=== PATIENT | male | born 1930 | race Caucasian/White ===

== ENCOUNTER 2016-11-28 13:54 | Emergency (ER) | payer OTHER ==
[~2016-11-28] VITALS: Ht 180.3 cm; Wt 99.0 kg
[~2016-11-28 13:54] MED LIST: B-12500T3 PO; CALC600T44 PO; GLUC1CAP14; METF500 PO; WARF2.5T40 PO; WARF5TAB PO; [UNRECOGNIZED DRUG - REMARK] PO; cholesterol pill PO
[2016-11-28 13:57] VITALS: PULSE 76; RESP 20; TEMP 97.7; O2SAT 75
[2016-11-28 14:28] VITALS: O2SAT 88
[2016-11-28] MEDS ORDERED: SODIUM CHLORIDE 0.9% FLUSH 5 ML FLUSH IVF PRN (14:30)
[2016-11-28] MEDS ORDERED: FUROSEMIDE 100 MG/10 ML VIAL IVP ONE (14:30)
--- NOTE | 2016-11-28 14:32 | PD ---
HPI Chief Complaint: Respiratory Symptoms Time Seen by Provider: 14:11 Travel History International Travel<30 days: No Contact w/Intl Traveler<30days: No Traveled to known affect area: No History of Present Illness HPI This patient complains of shortness of breath. He is chronically short of breath but worse the last 2 days than usual. He has generalized weakness. He has increased swelling in his legs. Denies productive cough or fever or chest pain. Has history of chronic A. fib and CHF and is dependent on oxygen 3 L around the clock. Also COPD. Symptoms moderately severe. No alleviating factors. PFSH Past Medical History Hx Anticoagulant Therapy: Yes (COUMADIN) Atrial Fibrillation: Yes Depression: Yes Cardiovascular Problems: Yes (OPEN HEART 17 YEARS AGO) High Cholesterol: Yes COPD: Yes Coronary Artery Disease: Yes Diabetes: Yes (TYPE 2) Patient Takes Glucophage: No Diminished Hearing: Yes Hypertension: Yes Respiratory: Yes Immunizations Current: Yes Past Surgical History Appendectomy: Yes Coronary Artery Bypass Graft: Yes (4 vessell) Other Surgery: Yes (ing hernia) Social History Alcohol Use: No Tobacco Use: No Substance Use: No Allergies-Medications (Allergen,Severity, Reaction): Coded Allergies: No Known Allergies (Unverified , 11/28/16) Reported Meds & Prescriptions Reported Meds & Active Scripts Active Reported Calcium + D3 (Calcium Carbonate-Cholecalciferol) 600-200 Mg-Unit Tab 1 Tab PO DAILY B-12 Tr (Cyanocobalamin) 1,000 Mcg Tab 1,000 Mcg PO DAILY Furosemide 40 Mg Tab 40 Mg PO DAILY Glucosamine (Glucosamine Sulfate) 500 Mg Cap 500 Mg PO BID Warfarin 5 Mg Tab 5 Mg PO MON,,MON,MON,SAT Warfarin 5 Mg Tab 2.5 Mg PO MON &FRI Metformin (Metformin HCl) 1,000 Mg Tab 1,000 Mg PO BIDPC With meals Colestipol (Colestipol HCl) 1 Gm Tab 1 Gm PO BID Review of Systems General / Constitutional: No: Fever Eyes: No: Visual changes HENT: No: Headaches Cardiovascular: Positive: Edema, No: Chest Pain or Discomfort Respiratory: Positive: Shortness of Breath Gastrointestinal: No: Abdominal Pain Genitourinary: No: Dysuria Musculoskeletal: Positive: Weakness, Edema, No: Pain Skin: No Rash Neurologic: Positive: Weakness Psychiatric: No: Depression Endocrine: No: Polydipsia Hematologic/Lymphatic: No: Easy Bruising Physical Exam Narrative GENERAL: Well-nourished, well-developed patient who is short of breath. Hard of hearing SKIN: Warm and dry. HEAD: Atraumatic. Normocephalic. EYES: Pupils equal and round. No scleral icterus. No injection or drainage. ENT: No nasal bleeding or discharge. Mucous membranes pink and moist. NECK: Trachea midline. No JVD. CARDIOVASCULAR: Regular rate and rhythm. No murmur appreciated. RESPIRATORY: Positive accessory muscle use. He has Bilateral basilar crackles. Breath sounds equal bilaterally. GASTROINTESTINAL: Abdomen soft, non-tender, nondistended. Hepatic and splenic margins not palpable. MUSCULOSKELETAL: No obvious deformities. No clubbing. No cyanosis. Symmetric edema the feet ankles and lower legs NEUROLOGICAL: Awake and alert. No obvious cranial nerve deficits. Motor grossly within normal limits. Normal speech. PSYCHIATRIC: Appropriate mood and affect; insight and judgment normal. Data Data Last Documented VS Vital Signs Date Time Temp Pulse Resp B/P Pulse Ox O2 Delivery O2 Flow Rate FiO2 11/28/16 15:56 60 18 121/64 94 Nasal Cannula 3.5 11/28/16 13:57 97.7 Orders Complete Blood Count With Diff (11/28/16 14:18) Basic Metabolic Panel (Bmp) (11/28/16 14:18) B-Type Natriuretic Peptide (11/28/16 14:18) Prothrombin Time / Inr (Pt) (11/28/16 14:18) Urinalysis - C+S If Indicated (11/28/16 14:18) Iv Access Insert/Monitor (11/28/16 14:18) Ecg Monitoring (11/28/16 14:18) Oximetry (11/28/16 14:18) Oxygen Administration (11/28/16 14:18) Chest, Single Ap (11/28/16 14:18) Sodium Chloride 0.9% Flush (Ns Flush) (11/28/16 14:30) Furosemide Inj (Lasix Inj) (11/28/16 14:30) Electrocardiogram (11/28/16 14:09) Arterial Blood Gas (Abg) (11/28/16 ) Labs Laboratory Tests Test 11/28/16 11/28/16 14:30 15:41 White Blood Count 6.2 TH/MM3 Red Blood Count 3.29 MIL/MM3 Hemoglobin 10.7 GM/DL Hematocrit 33.3 % Mean Corpuscular Volume 101.2 FL Mean Corpuscular Hemoglobin 32.5 PG Mean Corpuscular Hemoglobin 32.1 % Concent Red Cell Distribution Width 13.3 % Platelet Count 232 TH/MM3 Mean Platelet Volume 8.1 FL Neutrophils (%) (Auto) 82.8 % Lymphocytes (%) (Auto) 5.2 % Monocytes (%) (Auto) 8.8 % Eosinophils (%) (Auto) 0.3 % Basophils (%) (Auto) 2.9 % Neutrophils # (Auto) 5.2 TH/MM3 Lymphocytes # (Auto) 0.3 TH/MM3 Monocytes # (Auto) 0.5 TH/MM3 Eosinophils # (Auto) 0.0 TH/MM3 Basophils # (Auto) 0.2 TH/MM3 CBC Comment DIFF FINAL Differential Comment Prothrombin Time GREATER THAN 180.0 SEC Prothromb Time International 15.9 RATIO Ratio Sodium Level 140 MEQ/L Potassium Level 4.9 MEQ/L Chloride Level 95 MEQ/L Carbon Dioxide Level 42.6 MEQ/L Anion Gap 2 MEQ/L Blood Urea Nitrogen 43 MG/DL Creatinine 1.10 MG/DL Estimat Glomerular Filtration 63 ML/MIN Rate Random Glucose 211 MG/DL Calcium Level 9.2 MG/DL B-Type Natriuretic Peptide 708 PG/ML Urine Color YELLOW Urine Turbidity CLEAR Urine pH 6.0 Urine Specific [place] 1.012 Urine Protein TRACE mg/dL Urine Glucose (UA) NEG mg/dL Urine Ketones NEG mg/dL Urine Occult Blood NEG Urine Nitrite NEG Urine Bilirubin NEG Urine Leukocyte Esterase NEG Urine WBC 0-2 /hpf Urine Squamous Epithelial 0-5 /hpf Cells Microscopic Urinalysis Comment CULT NOT INDICATED MDM Medical Decision Making Medical Screen Exam Complete: Yes Emergency Medical Condition: Yes Medical Record Reviewed: Yes Differential Diagnosis CHF, pneumonia, bronchitis, COPD Narrative Course I have reviewed the patient's electronic medical record. I reviewed his most recent ER evaluation. He has a lot of chronic unfixable problems that we manage as best as we can. He also has history of asbestosis. IV placed CBC shows minor anemia Metabolic profile shows some elevation of BUN BNP is elevated in the 700s I reviewed his chest x-ray which shows cardiomegaly and sternal wires and some asbestosis findings. May have a hint of pulmonary edema in there also I reviewed his EKG which shows slow A. fib which is chronic Extended cardiac monitoring shows slow A. fib I gave him 60 mg iV Lasix Patient is diuresing On reevaluation he feels improved On his usual chronic 3 L cannula his saturation is 95-96% His ex- lives with him and helps take care of him and usually hands out his medication to him. However the last few days this patient was doing his own medications and has been noncompliant with diuretic. This would explain his increased edema He will double his diuretic for the next 3 days then return to normal levels They will be a balancing act between fluid removal and renal function over the long-term They will follow up with [place] primary physician Roxane man will take him home He is able to stand up and use the commode here in the department We had a lengthy discussion regarding placement. At some point in the near future he should be considered for [facility] placement. His ex will bring [facility] with [facility]. He looks clinically improved I don't think he requires urgent hospitalization for diuresis. He will return should he worsen Of note is INR on Coumadin is 15.9 and that should be held for several days until the [facility] can reass[facility] it He does not have any active bleeding. I gave him a dose of vitamin K 10 mg subcutaneous Diagnosis Primary Impression: Congestive heart failure Qualified Code: I50.23 - Acute on chronic systolic congestive heart failure Additional Impressions: Asbestosis Supratherapeutic INR Additional Instructions: Double diuretic for 3 days then return to normal dosing Stop Coumadin until [facility] reassesses the level Med/Other Pt SpecificInfo: Other Disposition: 01 DISCHARGE HOME Condition: Stable Mark Kim MD Nov 28, 2016 14:31
[2016-11-28] MEDS ORDERED: METF1000 PO (14:41)
[2016-11-28] MEDS ORDERED: COLE1TAB2 PO (14:41)
[2016-11-28] MEDS ORDERED: [UNRECOGNIZED DRUG - CODE] PO (14:41)
[2016-11-28] MEDS ORDERED: GLUC500C5 PO (14:41)
[2016-11-28] MEDS ORDERED: CALC600T10 PO (14:41)
[2016-11-28] MEDS ORDERED: FURO40TA PO (14:41)
[2016-11-28] MEDS ORDERED: WARF-23 PO ×2 (14:41)
[2016-11-28 14:44] LABS: POTASSIUM 4.9 MEQ/L (3.5-5.1)
[2016-11-28 14:47] LABS: BICARBONATE 42.6 MEQ/L (21.0-32.0)
[2016-11-28 14:51] LABS: AUTOMATED NEUTROPHIL # 5.2 TH/MM3 (1.8-7.7); BASOPHIL # 0.2 TH/MM3 (0-0.2); BASOPHIL % 2.9 % (0.0-2.0); EOSINOPHIL % 0.3 % (0.0-4.0); HEMATOCRIT 33.3 % (39.0-51.0); LYMPH % 5.2 % (9.0-44.0); LYMPHOCYTE # 0.3 TH/MM3 (1.0-4.8); MEAN CELL VOLUME 101.2 FL (80.0-100.0); MEAN CORPUSCULAR HEMOGLOBIN 32.5 PG (27.0-34.0); MEAN CORPUSCULAR HGB CONC 32.1 % (32.0-36.0); MONO % 8.8 % (0.0-8.0); NEUT % 82.8 % (16.0-70.0); PLATELET COUNT 232 TH/MM3 (150-450); RED BLOOD COUNT 3.29 MIL/MM3 (4.50-5.90); RED CELL DISTRIBUTION WIDTH 13.3 % (11.6-17.2); WHITE BLOOD COUNT 6.2 TH/MM3 (4.0-11.0)
[2016-11-28 14:54] LABS: HEMO FLAGS DIFF FINAL
--- NOTE | 2016-11-28 15:11 | RADHPO ---
EXAM DATE/TIME: 11/28/2016 14:44 [facility] COMPARISON: No previous studies available for comparison. INDICATIONS : Short of breath MEDICAL HISTORY : Hypertension. Hypercholesterolemia. SURGICAL HISTORY : CABG. ENCOUNTER: Initial ACUITY: 2 days PAIN SCORE: 2/10 LOCATION: Bilateral chest FINDINGS: The cardiac silhouette is normal in transverse diameter. Median sternotomy wires are present. There i s severe chronic fibrotic changes bilaterally with pleural thickening or fluid bilaterally. CT scan i s recommended for further evaluation if clinically indicated. There is calcification along the right hemidiaphragm. There is also calcification in the left hemithorax. CONCLUSION: Cardiomegaly with findings of asbestosis. CT scan is recommended for further evaluation if clinically indicated. Taye Brarett MD on November 28, 2016 at 15:01 Board Certified Radiologist. This report was verified electronically.
[2016-11-28 15:24] LABS: INTERNATIONAL NORMALIZED RATIO 15.9 RATIO; PROTHROMBIN TIME - PATIENT GREATER THAN 180.0 SEC (9.8-11.6)
[2016-11-28 15:51] LABS: BLOOD, URINE NEG (NEG); GLUCOSE,URINE NEG (NEG); KETONE, URINE NEG (NEG); NITRITE,URINE NEG (NEG)
[2016-11-28 15:56] VITALS: BP 121/64; PULSE 60; RESP 18; O2SAT 94
[2016-11-28 15:57] LABS: URINE COLOR YELLOW (YELLW/STRAW)
[2016-11-28 15:58] LABS: COMMENT (UR) CULT NOT INDICATED; CULTURE IF INDICATED CULT NOT INDICATED; SQUAMOUS EPITHELIAL CELL URINE 0-5 /hpf (0-5); WBC, URINE 0-2 /hpf (0-5)
[2016-11-28] MEDS ORDERED: PHYTONADIONE 10 MG/ML VIAL SQ ONE ×2 (16:45)
[2016-11-28] MEDS ORDERED: PHYTONADIONE INJ 1 MG/0.5 ML AMP SQ ONE (16:45)
--- NOTE | 2016-11-29 15:40 | EKG ---
Date Performed: 11/28/2016 Time Performed: 14:09:00 PTAGE: 86 years EKG: Atrial fibrillation with slow ventricular response Extensive T wave changes are nonspecific Low QRS voltages in limb leads Abnormal ECG PREVIOUS TRACING : 09/11/2015 17.08 Compared to previous tracing, nonspecific T wave changes ar e now evident. DOCTOR: Juan Dorado Interpretating Date/Time 11/29/2016 15:40:08
== END 2016-11-28 16:46 | disposition home or self-care (01) ==
LOC: PHED 13:54
DX: I50.23 Acute on chronic systolic (congestive) heart failure (principal); J61 Pneumoconiosis due to asbestos and other mineral fibers; R79.1 Abnormal coagulation profile
CPT/HCPCS: 71010; 80048; 81001; 83880; 85025; 85610; 93005; 96372; 96374; 99285; J1940; J3430

== ENCOUNTER 2016-11-30 12:07 | Inpatient (IN) | payer MEDICARE, OTHER ==
[~2016-11-30] VITALS: Ht 172.7 cm; Wt 80.0 kg
[2016-11-30] VITALS (9 sets, daily range): BP systolic 110–160; BP diastolic 53–73; PULSE 50–78; RESP 12–22; TEMP 98.1–98.6; O2SAT 83–97
[~2016-11-30 12:07] MED LIST changes: -B-12500T3 PO; +CALC600T10 PO; -CALC600T44 PO; +COLE1TAB2 PO; +FURO40TA PO; -GLUC1CAP14; +GLUC500C5 PO; +METF1000 PO; -METF500 PO; +WARF-23 PO; -WARF2.5T40 PO; -WARF5TAB PO; +[UNRECOGNIZED DRUG - CODE] PO; -[UNRECOGNIZED DRUG - REMARK] PO; -cholesterol pill PO
--- NOTE | 2016-11-30 13:18 | PD ---
HPI Chief Complaint: Medical Clearance Time Seen by Provider: 13:10 Travel History International Travel<30 days: No Contact w/Intl Traveler<30days: No Traveled to known affect area: No History of Present Illness HPI Patient is an 86-year-old male brought in for evaluation of an elevated INR. Patient's INR was reported to be around 15 on November 28. states they went to the [facility] emergency department 2 days ago and was advised to stop taking the Coumadin. Patient's also states that she went away for a week and when she came back he had a significant change in that he could not walk well and felt dizzy. She states prior to her going away he was able to ambulate but touching the pickering. Additionally states that he fell out of bed last night, she is uncertain whether not he lost consciousness or hit his head. When she found him he had crawled to the other side of the room. There was a table that was overturned, the lamp was turned over. called EMS to help get patient off of the floor. When EMS arrived on the scene and checked patient's oxygen saturation they stated it was low and that his home O2 wasn't providing enough oxygen. She states it was less than 1 L, he is supposed to be on 3 L. Patient does report that he has felt dizzy but denies any chest pain, shortness of breath, headache, fever, chills. Patient is a poor historian. PFSH Past Medical History Hx Anticoagulant Therapy: Yes (COUMADIN) Atrial Fibrillation: Yes Depression: Yes Cardiovascular Problems: Yes (BYPASS) High Cholesterol: Yes COPD: Yes Coronary Artery Disease: Yes Diabetes: Yes Diminished Hearing: Yes Hypertension: Yes Respiratory: Yes (COPD/ on O2 AT ALL TIMES AT 3 LNC) Immunizations Current: Yes Past Surgical History Appendectomy: Yes Coronary Artery Bypass Graft: Yes (4 vessell) Other Surgery: Yes (ing hernia) Social History Alcohol Use: No Tobacco Use: No Substance Use: No Allergies-Medications (Allergen,Severity, Reaction): Coded Allergies: No Known Allergies (Unverified , 11/30/16) Reported Meds & Prescriptions Reported Meds & Active Scripts Active Reported Vitamin B-12 (Cyanocobalamin) 1,000 Mcg Tab 1,000 Mcg PO DAILY Calcium + D3 (Calcium Carbonate-Cholecalciferol) 600-200 Mg-Unit Tab 1 Tab PO DAILY Furosemide 40 Mg Tab 40 Mg PO DAILY Glucosamine (Glucosamine Sulfate) 500 Mg Cap 500 Mg PO BID Warfarin 5 Mg Tab 5 Mg PO SUTUWETHSA Take 1 tablet (5mg) on Monday,Monday,Monday, and Monday Warfarin 5 Mg Tab 2.5 Mg PO MOFR Take 1/2 tablet (2.5mg) on Monday and Monday Metformin (Metformin HCl) 1,000 Mg Tab 1,000 Mg PO BIDPC With meals Colestipol (Colestipol HCl) 1 Gm Tab 1 Gm PO BID Review of Systems ROS Limitations: Poor Historian Except as stated in HPI: all other systems reviewed are Neg HENT: No: Headaches Cardiovascular: No: Chest Pain or Discomfort Respiratory: No: Shortness of Breath Gastrointestinal: No: Nausea, Abdominal Pain Neurologic: Positive: Dizziness, Coordination Problem, Headache, Other (gait disturbance) Physical Exam Narrative GENERAL: Well-developed, well-nourished, elderly male. SKIN: Warm and dry. HEAD: Atraumatic. Normocephalic. EYES: Pupils equal and round. No scleral icterus. No injection or drainage. ENT: No nasal bleeding or discharge. Mucous membranes pink and moist. NECK: Trachea midline. No JVD. CARDIOVASCULAR: Regular rate and rhythm. 3/6 systolic murmur appreciated. RESPIRATORY: No accessory muscle use. Diminished in bases, no wheezing, rhonchi , or rales noted. GASTROINTESTINAL: Abdomen soft, non-tender, nondistended. Hepatic and splenic margins not palpable. MUSCULOSKELETAL: No obvious deformities. No clubbing. No cyanosis. No edema. NEUROLOGICAL: Awake and alert. No obvious cranial nerve deficits. Motor grossly within normal limits. Normal speech. Hard of hearing. PSYCHIATRIC: Appropriate mood and affect; insight and judgment normal. Data Data Last Documented VS Vital Signs Date Time Temp Pulse Resp B/P Pulse Ox O2 Delivery O2 Flow Rate FiO2 11/30/16 17:00 52 18 110/53 91 Nasal Cannula 2 11/30/16 12:09 98.1 Orders Prothrombin Time / Inr (Pt) (11/30/16 12:53) Act Partial Throm Time (Ptt) (11/30/16 12:53) Complete Blood Count With Diff (11/30/16 12:53) Comprehensive Metabolic Panel (11/30/16 12:53) Ct Brain W/O Iv Contrast(Rout) (11/30/16 ) Urinalysis - C+S If Indicated (11/30/16 13:08) Ckmb (Isoenzyme) Profile (11/30/16 13:10) Troponin I (11/30/16 13:10) B-Type Natriuretic Peptide (11/30/16 15:09) Iv Access Insert/Monitor (11/30/16 15:09) Ecg Monitoring (11/30/16 15:09) Oximetry (11/30/16 15:09) Oxygen Administration (11/30/16 15:09) Chest, Single Ap (11/30/16 15:09) Albuterol-Ipratropium Neb (Duoneb Neb) (11/30/16 15:15) Arterial Blood Gas (Abg) (11/30/16 ) Admit Order (Ed Use Only) (11/30/16 17:12) Consult Pt Eval & Treat (11/30/16 17:13) Labs Laboratory Tests Test 11/30/16 11/30/16 11/30/16 13:14 15:34 15:35 White Blood Count 7.2 TH/MM3 Red Blood Count 2.93 MIL/MM3 Hemoglobin 10.2 GM/DL Hematocrit 29.8 % Mean Corpuscular Volume 101.8 FL Mean Corpuscular Hemoglobin 34.9 PG Mean Corpuscular Hemoglobin 34.2 % Concent Red Cell Distribution Width 14.0 % Platelet Count 190 TH/MM3 Mean Platelet Volume 8.4 FL Neutrophils (%) (Auto) 88.4 % Lymphocytes (%) (Auto) 2.8 % Monocytes (%) (Auto) 7.8 % Eosinophils (%) (Auto) 0.1 % Basophils (%) (Auto) 0.9 % Neutrophils # (Auto) 6.3 TH/MM3 Lymphocytes # (Auto) 0.2 TH/MM3 Monocytes # (Auto) 0.6 TH/MM3 Eosinophils # (Auto) 0.0 TH/MM3 Basophils # (Auto) 0.1 TH/MM3 CBC Comment DIFF FINAL Differential Comment Prothrombin Time 22.8 SEC Prothromb Time International 2.0 RATIO Ratio Activated Partial 33.8 SEC Thromboplast Time Sodium Level 142 MEQ/L Potassium Level 4.2 MEQ/L Chloride Level 96 MEQ/L Carbon Dioxide Level 41.1 MEQ/L Anion Gap 5 MEQ/L Blood Urea Nitrogen 41 MG/DL Creatinine 1.29 MG/DL Estimat Glomerular Filtration 53 ML/MIN Rate Random Glucose 259 MG/DL Calcium Level 9.0 MG/DL Total Bilirubin 0.9 MG/DL Aspartate Amino Transf 176 U/L (AST/SGOT) Alanine Aminotransferase 138 U/L (ALT/SGPT) Alkaline Phosphatase 125 U/L Total Creatine Kinase 89 U/L Troponin I 0.18 NG/ML Total Protein 7.0 GM/DL Albumin 3.5 GM/DL Blood Gas Puncture Site RT RADIAL Blood Gas Patient Temperature 98.6 Blood Gas HCO3 44 mmol/L Blood Gas Base Excess 17.5 mmol/L Blood Gas Oxygen Saturation 93 % Arterial Blood pH 7.39 Arterial Blood Partial 74 mmHg Pressure CO2 Arterial Blood Partial 80 mmHG Pressure O2 Arterial Blood Oxygen Content 14.8 Vol % Arterial Blood 1.9 % Carboxyhemoglobin Arterial Blood Methemoglobin 0.2 % Blood Gas Hemoglobin 11.3 G/DL Oxygen Delivery Device NASAL CANNULA Blood Gas Liter Flow 4 L/M B-Type Natriuretic Peptide 706 PG/ML MDM Medical Decision Making Medical Screen Exam Complete: Yes Emergency Medical Condition: Yes Interpretation(s) Vital Signs Date Time Temp Pulse Resp B/P Pulse Ox O2 Delivery O2 Flow Rate FiO2 11/30/16 12:09 98.1 78 20 160/67 92 Room Air Differential Diagnosis CVA versus coagulopathy versus hypoxia versus electrolyte abnormality versus cardiac arrhythmia Narrative Course Patient is in a 86-year-old male presenting to the emergency department for evaluation of elevated INR. Additionally patient had an unwitnessed fall earlier this morning. Patient is also felt dizzy and lightheaded and hasn't been able to ambulate as he normally would, and is uncertain how long this has been going on however patient's was out of town for a week and he was normal before she left. Labs ordered and pending. CT scan of the brain ordered to rule out acute bleed due to elevated INR as well as uncertainty regarding head injury. Workup initiated in triage, care of patient will be transferred to provide her with a medical bed is available. Cecilia Harrell Nov 30, 2016 13:18
[2016-11-30 13:31] LABS: AUTOMATED NEUTROPHIL # 6.3 TH/MM3 (1.8-7.7); BASOPHIL # 0.1 TH/MM3 (0-0.2); BASOPHIL % 0.9 % (0.0-2.0); EOSINOPHIL % 0.1 % (0.0-4.0); HEMATOCRIT 29.8 % (39.0-51.0); HEMO FLAGS DIFF FINAL; LYMPH % 2.8 % (9.0-44.0); LYMPHOCYTE # 0.2 TH/MM3 (1.0-4.8); MEAN CELL VOLUME 101.8 FL (80.0-100.0); MEAN CORPUSCULAR HEMOGLOBIN 34.9 PG (27.0-34.0); MEAN CORPUSCULAR HGB CONC 34.2 % (32.0-36.0); MONO % 7.8 % (0.0-8.0); NEUT % 88.4 % (16.0-70.0); PLATELET COUNT 190 TH/MM3 (150-450); RED BLOOD COUNT 2.93 MIL/MM3 (4.50-5.90); WHITE BLOOD COUNT 7.2 TH/MM3 (4.0-11.0)
[2016-11-30 13:44] LABS: APTT (PATIENT) 33.8 SEC (24.3-30.1); PROTHROMBIN TIME - PATIENT 22.8 SEC (9.8-11.6)
[2016-11-30 13:50] LABS: ALT (GPT) 138 U/L (12-78); ANION GAP 5 MEQ/L (5-15); AST (GOT) 176 U/L (15-37); BICARBONATE 41.1 MEQ/L (21.0-32.0); BLOOD UREA NITROGEN 41 MG/DL (7-18); CHLORIDE 96 MEQ/L (98-107); GLOMERULAR FILTRATION RATE 53 ML/MIN (>89); POTASSIUM 4.2 MEQ/L (3.5-5.1); SODIUM (NA) 142 MEQ/L (136-145)
[2016-11-30 13:52] LABS: ALKALINE PHOSPHATASE 125 U/L (45-117); TOTAL BILIRUBIN ADULT 0.9 MG/DL (0.2-1.0)
--- NOTE | 2016-11-30 14:40 | RADRPT ---
EXAM DATE/TIME: 11/30/2016 13:40 [facility] COMPARISON: No previous studies available for comparison. INDICATIONS : Weakness, altered mental status. RADIATION DOSE: 40.13 CTDIvol (mGy) MEDICAL HISTORY : Cardiovascular disease. Hypertension. Diabetes mellitus type 2. SURGICAL HISTORY : Appendectomy. ENCOUNTER: Initial ACUITY: 1 day PAIN SCALE: 0/10 LOCATION: cranial TECHNIQUE: Multiple contiguous axial images were obtained of the head. Using automated exposure control and adj ustment of the mA and/or kV according to patient size, radiation dose was kept as low as reasonably a chievable to obtain optimal diagnostic quality images. FINDINGS: CEREBRUM: The ventricles are normal for age. No evidence of midline shift, mass lesion, hemorrhage or acute in farction. No extra-axial fluid collections are seen. POSTERIOR FOSSA: The cerebellum and brainstem are intact. The 4th ventricle is midline. The cerebellopontine angle i s unremarkable. EXTRACRANIAL: The visualized portion of the orbits is intact. SKULL: The calvaria is intact. No evidence of skull fracture. CONCLUSION: Negative noncontrast head CT. Kenroy Tovar MD on November 30, 2016 at 14:38 Board Certified Radiologist. This report was verified electronically.
--- NOTE | 2016-11-30 15:13 | PD ---
Physical Exam Narrative 86-year-old male with altered mental status and generalized malaise and weakness. Patient was seen by my senior it assistant and signed out to me. Data Data Last Documented VS Vital Signs Date Time Temp Pulse Resp B/P Pulse Ox O2 Delivery O2 Flow Rate FiO2 11/30/16 15:10 83 Nasal Cannula 2 11/30/16 15:03 69 22 128/68 11/30/16 12:09 98.1 Orders Prothrombin Time / Inr (Pt) (11/30/16 12:53) Act Partial Throm Time (Ptt) (11/30/16 12:53) Complete Blood Count With Diff (11/30/16 12:53) Comprehensive Metabolic Panel (11/30/16 12:53) Ct Brain W/O Iv Contrast(Rout) (11/30/16 ) Urinalysis - C+S If Indicated (11/30/16 13:08) Ckmb (Isoenzyme) Profile (11/30/16 13:10) Troponin I (11/30/16 13:10) B-Type Natriuretic Peptide (11/30/16 15:09) Iv Access Insert/Monitor (11/30/16 15:09) Ecg Monitoring (11/30/16 15:09) Oximetry (11/30/16 15:09) Oxygen Administration (11/30/16 15:09) Chest, Single Ap (11/30/16 15:09) Albuterol-Ipratropium Neb (Duoneb Neb) (11/30/16 15:15) Arterial Blood Gas (Abg) (11/30/16 ) Admit Order (Ed Use Only) (11/30/16 17:12) Consult Pt Eval & Treat (11/30/16 17:13) Labs Laboratory Tests Test 11/30/16 11/30/16 13:14 15:34 White Blood Count 7.2 TH/MM3 Red Blood Count 2.93 MIL/MM3 Hemoglobin 10.2 GM/DL Hematocrit 29.8 % Mean Corpuscular Volume 101.8 FL Mean Corpuscular Hemoglobin 34.9 PG Mean Corpuscular Hemoglobin 34.2 % Concent Red Cell Distribution Width 14.0 % Platelet Count 190 TH/MM3 Mean Platelet Volume 8.4 FL Neutrophils (%) (Auto) 88.4 % Lymphocytes (%) (Auto) 2.8 % Monocytes (%) (Auto) 7.8 % Eosinophils (%) (Auto) 0.1 % Basophils (%) (Auto) 0.9 % Neutrophils # (Auto) 6.3 TH/MM3 Lymphocytes # (Auto) 0.2 TH/MM3 Monocytes # (Auto) 0.6 TH/MM3 Eosinophils # (Auto) 0.0 TH/MM3 Basophils # (Auto) 0.1 TH/MM3 CBC Comment DIFF FINAL Differential Comment Prothrombin Time 22.8 SEC Prothromb Time International 2.0 RATIO Ratio Activated Partial 33.8 SEC Thromboplast Time Sodium Level 142 MEQ/L Potassium Level 4.2 MEQ/L Chloride Level 96 MEQ/L Carbon Dioxide Level 41.1 MEQ/L Anion Gap 5 MEQ/L Blood Urea Nitrogen 41 MG/DL Creatinine 1.29 MG/DL Estimat Glomerular Filtration 53 ML/MIN Rate Random Glucose 259 MG/DL Calcium Level 9.0 MG/DL Total Bilirubin 0.9 MG/DL Aspartate Amino Transf 176 U/L (AST/SGOT) Alanine Aminotransferase 138 U/L (ALT/SGPT) Alkaline Phosphatase 125 U/L Total Creatine Kinase 89 U/L Troponin I 0.18 NG/ML Total Protein 7.0 GM/DL Albumin 3.5 GM/DL Blood Gas Puncture Site RT RADIAL Blood Gas Patient Temperature 98.6 Blood Gas HCO3 44 mmol/L Blood Gas Base Excess 17.5 mmol/L Blood Gas Oxygen Saturation 93 % Arterial Blood pH 7.39 Arterial Blood Partial 74 mmHg Pressure CO2 Arterial Blood Partial 80 mmHG Pressure O2 Arterial Blood Oxygen Content 14.8 Vol % Arterial Blood 1.9 % Carboxyhemoglobin Arterial Blood Methemoglobin 0.2 % Blood Gas Hemoglobin 11.3 G/DL Oxygen Delivery Device NASAL CANNULA Blood Gas Liter Flow 4 L/M [facility] Supervised Visit with JUSTIN: Yes Interpretation(s) Last Impressions Head CT 11/30/16 0000 Signed Impressions: Service Date/Time: Wednesday, November 30, 2016 13:40 - CONCLUSION: Negative noncontrast head CT. Kenroy Tovar MD 15 12 PM. CBC WBC 7.2. Hemoglobin 10.2 hematocrit 29.8. MCV 101.8. 88 neutrophil. Bicarbonate 41.1. BUN 41. Creatinine 1.29. GFR 53. Glucose 259. AST 176. ALT 138. Alkaline phosphatase 125. 1657 PM. Chest x-ray shows no acute changes. Troponin 0.18. Narrative Course CBC is stable. BUN/creatinine in stable. Bicarbonate chronically elevated. Metabolic alkalosis compensation for respiratory acidosis. Patient has elevated LFTs without previous lab for comparison. Troponin elevated 0.18. Patient however has renal insufficiency and elevated BNP. Serial EKG and troponin pending. Diagnosis Primary Impression: Weakness Additional Impressions: Renal insufficiency COPD (chronic obstructive pulmonary disease) Qualified Code: J44.9 - Chronic obstructive pulmonary disease, unspecified COPD type CHF (congestive heart failure) Qualified Code: I50.9 - Chronic congestive heart failure, unspecified congestive heart failure type Elevated troponin Addison Gutierrez MD Nov 30, 2016 15:13
[2016-11-30] MEDS ORDERED: RESP: ALBUTEROL 2.5 MG/IPRATROPIUM 0.5 MG NEB (SCH) INH ONE (15:15)
[2016-11-30 15:39] LABS: BLOOD GAS BASE EXCESS 17.5 mmol/L (-2-2); BLOOD GAS CARBOXYHEMOGLOBIN 1.9 % (0-4); BLOOD GAS HCO3 44 mmol/L (22-26); BLOOD GAS METHEMOGLOBIN 0.2 % (0-2); BLOOD GAS O2 HGB SATURATION 93 % (90-100); BLOOD GAS OXYGEN CONTENT 14.8 Vol % (12.0-20.0); BLOOD GAS PCO2 74 mmHg (38-42); BLOOD GAS PO2 80 mmHG (61-120); BLOOD GAS TOTAL HGB 11.3 G/DL (12.0-16.0); TEMP CORR TO 98.6
[2016-11-30 15:46] LABS: CRITICAL VALUE YES; OXYGEN DEVICE NASAL CANNULA
[2016-11-30 15:47] LABS: DRAW SITE RT RADIAL; LITER FLOW 4 L/M; NUMBER OF ARTERIAL PUNCTURES 1; STAT YES; ULNAR PULSE PRESENT
[2016-11-30] MEDS ORDERED: VITA10002 PO (15:49)
--- NOTE | 2016-11-30 16:18 | RADRPT ---
EXAM DATE/TIME: 11/30/2016 15:33 [facility] COMPARISON: CHEST SINGLE AP, November 28, 2016, 14:44. INDICATIONS : Short of breath. MEDICAL HISTORY : Chronic obstructive pulmonary disease. SURGICAL HISTORY : CABG. ENCOUNTER: Initial ACUITY: 1 day PAIN SCORE: 0/10 LOCATION: Bilateral chest FINDINGS: Patchy consolidation and laterally loculated pleural effusions again seen on both sides. Findings are similar to perhaps slightly improved in the interim. No pneumothorax seen. Mild cardiomegaly is stable. Patient has had previous median sternotomy. CONCLUSION: No significant change to slightly improved. Please see above. Kenroy Tovar MD on November 30, 2016 at 16:16 Board Certified Radiologist. This report was verified electronically.
[2016-11-30] MEDS ORDERED: RESP: ALBUTEROL 2.5 MG/IPRATROPIUM 0.5 MG NEB (PRN) NEB (22:00)
[2016-11-30] MEDS ORDERED: COLESTIPOL 1 GM PO SCH (22:00)
[2016-11-30] MEDS ORDERED: GLUCAGON 1 MG/ML VIAL OTHER PRN (22:15)
[2016-11-30] MEDS ORDERED: DEXTROSE 50% IN WATER 50 ML VIAL(D50) IV PUSH PRN (22:15)
--- NOTE | 2016-11-30 23:54 | HHI.HP ---
[facility] Service [facility] Primary Care Physician [facility] Admission Diagnosis weakness. Renal insufficiency. COPD. CHF. Diagnoses: (1) Weakness (2) Lightheadedness (3) Dizziness (4) Atrial fibrillation (5) COPD (chronic obstructive pulmonary disease) (6) CHF (congestive heart failure) (7) Transaminitis (8) Renal insufficiency (9) Type 2 diabetes mellitus (10) Anemia Chief Complaint: Weakness in legs and inability to walk Travel History International Travel<30 Days: No Contact w/Intl Traveler <30 Da: No Traveled to Known Affected Are: No History of Present Illness Mr. Israel is a forgetful 86-year-old male with a past medical history of coronary artery disease that is supposed coronary artery bypass graft 4 vessels , atrial fibrillation on Coumadin, hyperlipidemia, hypertension, COPD-oxygen dependent (3 L nasal cannula), and type 2 diabetes mellitus who presented to the emergency room 11/30/2016 for recent fall, weakness, dizziness, and lightheadedness. The patient presented to the emergency room 11/28/2016 and an INR done at that time was 15.9 with PTT of greater than 180.0 (treated with Vitamin K 10 mg). Currently, PT is 22.8, INR 2.0, and aPTT 33.8. The patient is seen in his hospital room. He is forgetful during the interview and at times loses track of the conversation. He states he came to the emergency room because he has had weakness in his legs with inability to walk, sore ankles, dizziness, and fall 1 at home. He reports his symptoms present for one month. He said he had a severe abdominal pain and tightness across his chest that lasted only a second prior to falling. He says was unable to stand up afterwards and was crawling around the house before family member found him. He reports becoming very short of breath because he lost his nasal cannula. He states he is not short of breath when he is wearing his oxygen. He denies any fever. He denies liver or kidney problems, cancer, thyroid dysfunction, seizures, or problems with blood clots such as DVT, CVA, or PE. . Review of Systems Except as stated in HPI: all other systems reviewed are Neg Past Family Social History Past Medical History Coronary artery disease status post coronary artery bypass graft 4 18 years ago Atrial fibrillation on Coumadin Hyperlipidemia Hypertension COPD-home oxygen dependent at 3 L nasal cannula Type 2 diabetes mellitus . Past Surgical History Coronary artery bypass graft surgery 4 Inguinal hernia repair Appendectomy . Reported Medications Reported Meds & Active Scripts Active Reported Vitamin B-12 (Cyanocobalamin) 1,000 Mcg Tab 1,000 Mcg PO DAILY Calcium + D3 (Calcium Carbonate-Cholecalciferol) 600-200 Mg-Unit Tab 1 Tab PO DAILY Furosemide 40 Mg Tab 40 Mg PO DAILY Glucosamine (Glucosamine Sulfate) 500 Mg Cap 500 Mg PO BID Warfarin 5 Mg Tab 5 Mg PO SUTUWETHSA Take 1 tablet (5mg) on Monday,Monday,Monday, and Monday Warfarin 5 Mg Tab 2.5 Mg PO MOFR Take 1/2 tablet (2.5mg) on Monday and Monday Metformin (Metformin HCl) 1,000 Mg Tab 1,000 Mg PO BIDPC With meals Colestipol (Colestipol HCl) 1 Gm Tab 1 Gm PO BID . Allergies: Coded Allergies: No Known Allergies (Unverified , 11/30/16) Active Ordered Medications Current Medications Albuterol/ Ipratropium (Duoneb Neb) 1 ampule ONCE ONCE INH Last administered on 11/30/16t 15:32; Start 11/30/16 at 15:15; Stop 11/30/16 at 15:16; Status DC Albuterol/ Ipratropium (Duoneb Neb) 1 ampule Q2HR NEB PRN NEB shortness of breath/wheezing; Start 11/30/16 at 22:00 Furosemide (Lasix) 40 mg DAILY PO ; Start 12/01/16 at 09:00 Non-Formulary Medication 1 gm 1 gm BID PO CM; Start 11/30/16 at 22:00; Status UNV Pharmacy Profile Note (Coumadin Consult Pharmacy) 0 ml @ 0 mls/hr UNSCH OTHER ; Start 11/30/16 at 22:00 Dextrose (D50w (Vial) Inj) 25 ml UNSCH PRN IV PUSH HYPOGLYCEMIA-SEE COMMENTS; Start 11/30/16 at 22:15 Glucagon (Glucagon Inj) 1 mg UNSCH PRN OTHER HYPOGLYCEMIA-SEE COMMENTS; Start 11/30/16 at 22:15 Insulin Aspart (NovoLOG SUPPLEMENTAL SCALE) 1 ACHS SLIDING SCALE SQ ; Start 12/01/16 at 07:00 Patient Medication Teaching (Coumadin Booklet) 1 ONCE ONCE XX ; Start 11/30/16 at 22:15; Stop 11/30/16 at 22:16; Status DC Patient Own Medication PT OWN MED: COLESTI... BID PO ; Start 12/01/16 at 09:00; Status Future Hold . Family History Denies any medical problems in family members . Social History Tobacco: smoked cigars; never smoked cigarettes ETOH: states he used to drank a lot of beer; currently only drinks an occasional Rumchata shot May was last time he drove . Physical Exam Vital Signs Vital Signs Date Time Temp Pulse Resp B/P Pulse Ox O2 Delivery O2 Flow Rate FiO2 11/30/16 22:45 98.6 57 18 138/63 97 11/30/16 19:30 57 12 124/62 97 Nasal Cannula 4 11/30/16 19:29 57 97 11/30/16 18:00 51 15 135/60 92 Nasal Cannula 2 11/30/16 17:00 52 18 110/53 91 Nasal Cannula 2 11/30/16 16:00 58 21 117/73 90 Nasal Cannula 2 11/30/16 15:10 83 Nasal Cannula 2 11/30/16 15:03 69 22 128/68 83 Nasal Cannula 3 11/30/16 12:09 98.1 78 20 160/67 92 Room Air Physical Exam GENERAL: This is a well-nourished, well-developed patient, in no apparent distress but who is forgetful and has difficulty remaining focused on conversation at times. SKIN: No rashes, ecchymoses. Cool and dry. HEAD: Atraumatic. Normocephalic. EYES: No scleral icterus. No injection or drainage. ENT: Nose without bleeding, purulent drainage. NECK: Trachea midline. No JVD or lymphadenopathy. CARDIOVASCULAR: Regular rate and rhythm with loud heart murmur without gallops, or rubs. Right ankle edema noted. RESPIRATORY: Clear to auscultation. Breath sounds equal bilaterally. No wheezes , rales, or rhonchi. GASTROINTESTINAL: Abdomen soft, non-tender, nondistended. No guarding. MUSCULOSKELETAL: Extremities without clubbing, cyanosis. No calf tenderness. NEUROLOGICAL: Awake and alert. Motor and sensory grossly within normal limits. Normal speech. . Laboratory Laboratory Tests Test 11/30/16 11/30/16 11/30/16 11/30/16 13:14 15:34 15:35 18:45 White Blood Count 7.2 Red Blood Count 2.93 Hemoglobin 10.2 Hematocrit 29.8 Mean Corpuscular Volume 101.8 Mean Corpuscular Hemoglobin 34.9 Mean Corpuscular Hemoglobin 34.2 Concent Red Cell Distribution Width 14.0 Platelet Count 190 Mean Platelet Volume 8.4 Neutrophils (%) (Auto) 88.4 Lymphocytes (%) (Auto) 2.8 Monocytes (%) (Auto) 7.8 Eosinophils (%) (Auto) 0.1 Basophils (%) (Auto) 0.9 Neutrophils # (Auto) 6.3 Lymphocytes # (Auto) 0.2 Monocytes # (Auto) 0.6 Eosinophils # (Auto) 0.0 Basophils # (Auto) 0.1 CBC Comment DIFF FINAL Differential Comment Prothrombin Time 22.8 Prothromb Time International 2.0 Ratio Activated Partial 33.8 Thromboplast Time Sodium Level 142 Potassium Level 4.2 Chloride Level 96 Carbon Dioxide Level 41.1 Anion Gap 5 Blood Urea Nitrogen 41 Creatinine 1.29 Estimat Glomerular Filtration 53 Rate Random Glucose 259 Calcium Level 9.0 Total Bilirubin 0.9 Aspartate Amino Transf 176 (AST/SGOT) Alanine Aminotransferase 138 (ALT/SGPT) Alkaline Phosphatase 125 Total Creatine Kinase 89 81 Troponin I 0.18 0.17 Total Protein 7.0 Albumin 3.5 Blood Gas Puncture Site RT RADIAL Blood Gas Patient Temperature 98.6 Blood Gas HCO3 44 Blood Gas Base Excess 17.5 Blood Gas Oxygen Saturation 93 Arterial Blood pH 7.39 Arterial Blood Partial 74 Pressure CO2 Arterial Blood Partial 80 Pressure O2 Arterial Blood Oxygen Content 14.8 Arterial Blood 1.9 Carboxyhemoglobin Arterial Blood Methemoglobin 0.2 Blood Gas Hemoglobin 11.3 Oxygen Delivery Device NASAL CANNULA Blood Gas Liter Flow 4 B-Type Natriuretic Peptide 706 Result Diagram: 11/30/16 1314 11/30/16 1314 Imaging Last Impressions Chest X-Ray 11/30/16 1509 Signed Impressions: Service Date/Time: Wednesday, November 30, 2016 15:33 - CONCLUSION: No significant change to slightly improved. Please see above. Kenroy Tovar MD Head CT 11/30/16 0000 Signed Impressions: Service Date/Time: Wednesday, November 30, 2016 13:40 - CONCLUSION: Negative noncontrast head CT. Kenroy Tovar MD . Assessment and Plan Problem List: (1) Weakness ICD Code: R53.1 Status: Acute (2) Dizziness ICD Code: R42 Status: Acute (3) Lightheadedness ICD Code: R42 Status: Acute (4) Atrial fibrillation ICD Code: I48.91 Status: Chronic (5) COPD (chronic obstructive pulmonary disease) ICD Code: J44.9 Status: Chronic (6) CHF (congestive heart failure) ICD Code: I50.9 Status: Acute (7) Transaminitis ICD Code: R74.0 Status: Acute (8) Renal insufficiency ICD Code: N28.9 Status: Acute (9) Type 2 diabetes mellitus ICD Code: E11.9 Status: Chronic (10) Anemia ICD Code: D64.9 Status: Chronic Assessment and Plan Mr. 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 Weakness with recent fall - Head CT was negative - Consult physical therapy to improve strength and mobility - Case management consult; may need placement if pt agrees- would also need to explore family dynamics regarding care of patient at home - Urinalysis with C&S if indicated Dizziness/lightheadedness - Echocardiogram to evaluate structure and function of the heart - Ultrasound of carotid arteries to rule out carotid stenosis Loculated pleural effusion - Chest CT shows extensive pleural diaphragmatic calcifications and pleural thickening in both hemothoraces characteristic prior asbestos exposure; loculated pleural effusion and left upper lobe. - Consult pulmonology; assistance is appreciated - start on Levofloxacin renal adjusted dose Atrial fibrillation with supratherapeutic INR 11/28/16 txed with Vitamin K - Current PT is 22.8, INR 2.0, and aPTT 33.8. - Consult pharmacy for assistance with Coumadin dosing and therapeutic monitoring - for now, start on reduced dose of 2.5mg po qpm COPD - ABG shows retained CO2 - PCO2 elevated at 74 - compensated, chronic - Duo nebulizers every 2 hours as needed for shortness of breath/wheezing - Supplemental oxygen titrated to maintain oxygen saturation 88-90% do NOT increase oxygen without informing doctor- pt is chronic, compensated, co2 retainer- do not increase fio2 CHF and atypical chest tightness prior to fall - Chest x-ray with no significant change to slightly improved personally reviewed image - BNP elevated at 706 (was 708 on 11/28/16) - Serial Troponin I stable 0.18, 0.17, 0.15 - Monitor I & Os - continuous cardiac telemetry to monitor for arrhythmia - echo in am Transaminitis - likely r/t cirrhosis - AST 176, ALT 138, alkaline phosphatase 125 - no prior labs available for comparison - Recheck CMP in a.m. and follow trends in liver enzymes Ascites - CT pelvis and abdomen shows ascites in the upper abdomen with CT findings characteristic of some degree of cirrhosis and ascites tracking into the right inguinal hernia - Paracentesis if needed Acute renal insufficiency - BUN elevated at 41, creatinine 1.29, estimated GFR low at 53 - Recheck BMP in a.m. and follow trends in renal indices - Avoid nephrotoxins Type 2 diabetes mellitus with hyperglycemia - Blood glucose 259 on admission - Hold metformin for now in case contrast studies are needed - Accu-Cheks before meals and at bedtime with low-dose NovoLog sliding scale coverage - Bedtime snack - Treatment of hypoglycemia protocol ordered - Monitor trends in blood glucose levels and adjust treatments as indicated Anemia - Hemoglobin 10.2 - stable compared to lab draw on 11/28/16 - CBC in a.m. and follow trends in H&H DVT prophylaxis - Resume Coumadin Written by Ofelia Gilmore, acting as scribe for Dr. Edmond on 11/30/16 at 23:57. .All or portions of this note were transcribed by scribe [Ofelia Gilmore]. I, Dr. Vinod Edmond personally performed the history, physical exam, and medical decision making; and confirmed the accuracy of the information in the transcribed note. Authenticated by Dr. Vinod Edmond on 11/30/16 at 23:57. Discussed Condition With ER physician and patient . Problem Qualifiers (1) CHF (congestive heart failure): Qualified Code: I50.9 - Chronic congestive heart failure, unspecified congestive heart failure type (2) Type 2 diabetes mellitus: (3) Anemia: Qualified Code: D64.9 - Anemia, unspecified type Ofelia Gilmore Nov 30, 2016 23:54 Vinod Edmond MD Dec 01, 2016 09:00
[2016-12-01] VITALS (8 sets, daily range): BP systolic 108–145; BP diastolic 56–85; PULSE 50–65; RESP 16–20; TEMP 97.4–98.3; O2SAT 92–98
[2016-12-01] MEDS ORDERED: DIATRIZOATE MEGLUM/DIATRIZOATE SOD 9 ML CUP PO ONE (01:00)
--- NOTE | 2016-12-01 03:23 | RADRPT ---
EXAM DATE/TIME: 12/01/2016 02:41 [facility] COMPARISON: No previous studies available for comparison. INDICATIONS : Evaluate for pleural effusion. RADIATION DOSE: 16.20 CTDIvol (mGy) ; Combined studies - Thorax/Abdomen/Pelvis MEDICAL HISTORY : Cardiovascular disease. Hypertension. Diabetes mellitus type 2. COPD SURGICAL HISTORY : CABG Appendectomy.Inguinal hernia repair. ENCOUNTER: Initial ACUITY: 1 day PAIN SCALE: 0/10 LOCATION: chest TECHNIQUE: Volumetric scanning of the chest was performed. Using automated exposure control and adjustment of t he mA and/or kV according to patient size, radiation dose was kept as low as reasonably achievable to obtain optimal diagnostic quality images. FINDINGS: LUNGS: Groundglass densities in both hemithoraces with a more nodular type configuration in the right upper lobe measuring 1.2 cm in diameter. There are consolidative areas medially in both bases, right greate r than left that have the appearance of rounded atelectasis. PLEURAE: Extensive pleural and diaphragmatic calcifications and pleural thickening characteristic of prior asb estos exposure. Small, loculated left pleural effusion in the left upper lobe. MEDIASTINUM: Heart size is prominent. Dense atherosclerotic calcification of the coronary arteries. AXILLAE: Within normal limits. No lymphadenopathy. MUSCULOSKELETAL: Within normal limits for patient age. MISCELLANEOUS: Extensive ascites in the upper abdomen. CONCLUSION: 1. Extensive pleural and diaphragmatic calcifications with pleural thickening in both hemithoraces ch aracteristic of prior asbestos exposure. 2. Loculated pleural effusion in the left upper lobe. Significant ascites in the upper abdomen. 3. Consolidative areas medially in both lung bases, right greater than left. The appearance is sugges tive of rounded atelectasis. 4. Ground glass density scattered throughout both lungs characteristic of an inflammatory process. Th ere is a nodular ground glass density in the right upper lobe measuring 1.2 cm in diameter. Recommend followup noncontrasted CT scan of the chest in 3 months to ensure stability. 5. Ascites Edmund Fofana MD on December 01, 2016 at 3:15 Board Certified Radiologist. This report was verified electronically.
--- NOTE | 2016-12-01 03:29 | RADRPT ---
EXAM DATE/TIME: 12/01/2016 02:41 [facility] COMPARISON: No previous studies available for comparison. INDICATIONS : Abdomen pain. ORAL CONTRAST: Partial prescribed oral contrast ingested. RADIATION DOSE: 16.12 CTDIvol (mGy) ; Combined studies - Thorax/Abdomen/Pelvis MEDICAL HISTORY : Cardiovascular disease. Hypertension. Diabetes mellitus type 2.COPD SURGICAL HISTORY : Appendectomy. Cholecystectomy.Inguinal hernia repair. ENCOUNTER: Initial ACUITY: 1 day PAIN SCALE: 5/10 LOCATION: abdomen TECHNIQUE: Volumetric scanning of the abdomen and pelvis was performed. Using automated exposure control and ad justment of the mA and/or kV according to patient size, radiation dose was kept as low as reasonably achievable to obtain optimal diagnostic quality images. FINDINGS: LOWER LUNGS: Pleural and diaphragmatic calcifications characteristic of prior asbestos exposure. Rounded atelectas is in the medial aspect of both lung bases. Scattered ground glass density in both lungs characterist ic of an inflammatory type process. LIVER: Somewhat nodular appearance of the liver suggesting some degree of cirrhosis. No stone disease. SPLEEN: Normal size without lesion. PANCREAS: Within normal limits. KIDNEYS: Normal in size and shape. There is no mass, stone, or hydronephrosis. ADRENAL GLANDS: Within normal limits. VASCULAR: There is no aortic aneurysm. BOWEL/MESENTERY: The stomach, small bowel, and colon demonstrate no acute abnormality. Ascites predominantly in the up per abdomen with some edema in the mesenteric leaves and generalized anasarca in the soft tissues abo ut the trunk. Ascitic fluid tracks into a right inguinal hernia. ABDOMINAL WALL: Generalized anasarca.. RETROPERITONEUM: There is no lymphadenopathy. BLADDER: No wall thickening or mass. REPRODUCTIVE: Prominent prostate at 4.8 cm. INGUINAL: Right inguinal hernia. Ascites tracks into the hernia canal. MUSCULOSKELETAL: Within normal limits for patient age. CONCLUSION: 1. Pleural and diaphragmatic base calcifications with some regional pleural thickening characteristic of asbestos exposure. 2. Probable rounded atelectasis in both lung bases with scattered ground glass density in both lower lobes characteristic of an inflammatory process. 3. Ascites in the upper abdomen with CT findings characteristic of some degree of cirrhosis. Ascites tracks into the right inguinal hernia. . Edmund Fofana MD on December 01, 2016 at 3:22 Board Certified Radiologist. This report was verified electronically.
[2016-12-01] MEDS ORDERED: LEVOFLOXACIN 750 MG PREMIX INJ 150 ML IV SCH (05:00)
[2016-12-01] MEDS: INSULIN ASPART SUPPLEMENTAL SCALE SQ SCH ×4 (06:33→20:01)
[2016-12-01 06:58] LABS: AUTOMATED NEUTROPHIL # 3.3 TH/MM3 (1.8-7.7); BASOPHIL % 0.1 % (0.0-2.0); EOSINOPHIL % 0.5 % (0.0-4.0); HEMO FLAGS DIFF FINAL; LYMPH % 7.4 % (9.0-44.0); LYMPHOCYTE # 0.3 TH/MM3 (1.0-4.8); MEAN CELL VOLUME 102.6 FL (80.0-100.0); MEAN CORPUSCULAR HGB CONC 33.1 % (32.0-36.0); MONO % 9.3 % (0.0-8.0); NEUT % 82.7 % (16.0-70.0); PLATELET COUNT 154 TH/MM3 (150-450); RED BLOOD COUNT 2.53 MIL/MM3 (4.50-5.90); RED CELL DISTRIBUTION WIDTH 13.9 % (11.6-17.2)
[2016-12-01 07:47] LABS: ALKALINE PHOSPHATASE 98 U/L (45-117); ALT (GPT) 86 U/L (12-78); ANION GAP 4 MEQ/L (5-15); AST (GOT) 74 U/L (15-37); BICARBONATE 44.5 MEQ/L (21.0-32.0); BLOOD UREA NITROGEN 39 MG/DL (7-18); CHLORIDE 94 MEQ/L (98-107); GLOMERULAR FILTRATION RATE 63 ML/MIN (>89); POTASSIUM 4.1 MEQ/L (3.5-5.1); SODIUM (NA) 142 MEQ/L (136-145); TOTAL BILIRUBIN ADULT 0.6 MG/DL (0.2-1.0)
[2016-12-01] MEDS ORDERED: [UNRECOGNIZED DRUG - OTHER] PO SCH (09:00)
--- NOTE | 2016-12-01 10:42 | HHI.PR ---
Subjective Remarks f/u for SOB and dizziness. Patient stated he feels a lot better. He is able to answer questions but seems to be a poor historian. He stated SOB started about 2 weeks ago and resolved on its own. Patient admits to having hx of cardiac murmur. He stated 5 ror engineer are monitoring. He stated he had ECHO done here 3 days ago but I do not see it in MR. Patient denied any CP, palpations, N/V or diaphoresis. 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 Nurse stated there were some concerns last night about possible SI. I asked patient about this and he stated that a week ago he wanted to because someone said some private information about him to others. He stated he wasnt serious about it and did not have a plan. Patient at the moment denied any SI or HI and stated that he wants to live. he stated that he is getting again soon and he has so much to live for. He denied any depression. Objective Vitals Vital Signs Date Time Temp Pulse Resp B/P Pulse Ox O2 Delivery O2 Flow Rate FiO2 12/01/16 08:10 53 12/01/16 08:00 97.4 65 18 120/58 96 12/01/16 04:00 97.6 50 17 145/62 92 12/01/16 00:00 98.1 55 16 125/60 98 11/30/16 23:24 50 11/30/16 22:45 98.6 57 18 138/63 97 11/30/16 19:30 57 12 124/62 97 Nasal Cannula 4 11/30/16 19:29 57 97 11/30/16 18:00 51 15 135/60 92 Nasal Cannula 2 11/30/16 17:00 52 18 110/53 91 Nasal Cannula 2 11/30/16 17:00 91 Nasal Cannula 2.00 11/30/16 16:00 58 21 117/73 90 Nasal Cannula 2 11/30/16 15:10 83 Nasal Cannula 2 11/30/16 15:10 83 Nasal Cannula 2.00 11/30/16 15:03 69 22 128/68 83 Nasal Cannula 3 11/30/16 12:09 98.1 78 20 160/67 92 Room Air I/O 11/30/16 11/30/16 11/30/16 12/01/16 12/01/16 12/01/16 07:00 15:00 23:00 07:00 15:00 23:00 Intake Total 1080 ml Output Total 300 ml Balance 780 ml Intake Oral 1080 ml Output Urine Total 300 ml # Voids 1 Result Diagram: 12/01/1662712/01/16627 Objective Remarks GENERAL: CARDIOVASCULAR: Regular rate and rhythm 4/6 systolic heart murmur heard in all areas. RESPIRATORY: Breath sounds equal bilaterally. No accessory muscle use. GASTROINTESTINAL: Abdomen soft, non-tender, nondistended. MUSCULOSKELETAL: No cyanosis, or edema. BACK: Nontender without obvious deformity. No CVA tenderness. Medications and IVs Current Medications Albuterol/ Ipratropium (Duoneb Neb) 1 ampule ONCE ONCE INH Last administered on 11/30/16 15:32; Start 11/30/16 at 15:15; Stop 11/30/16 at 15:16; Status DC Albuterol/ Ipratropium (Duoneb Neb) 1 ampule Q2HR NEB PRN NEB shortness of breath/wheezing; Start 11/30/16 at 22:00 Furosemide (Lasix) 40 mg DAILY PO ; Start 12/01/16 at 09:00 Non-Formulary Medication 1 gm 1 gm BID PO CM; Start 11/30/16 at 22:00; Status UNV Pharmacy Profile Note (Coumadin Consult Pharmacy) 0 ml @ 0 mls/hr UNSCH OTHER ; Start 11/30/16 at 22:00 Dextrose (D50w (Vial) Inj) 25 ml UNSCH PRN IV PUSH HYPOGLYCEMIA-SEE COMMENTS; Start 11/30/16 at 22:15 Glucagon (Glucagon Inj) 1 mg UNSCH PRN OTHER HYPOGLYCEMIA-SEE COMMENTS; Start 11/30/16 at 22:15 Insulin Aspart (NovoLOG SUPPLEMENTAL SCALE) 1 ACHS SLIDING SCALE SQ Last administered on 12/01/16 06:33; Start 12/01/16 at 07:00 Patient Medication Teaching (Coumadin Booklet) 1 ONCE ONCE XX Last administered on 12/01/16 00:54; Start 11/30/16 at 22:15; Stop 11/30/16 at 22:16; Status DC Patient Own Medication PT OWN MED: COLESTI... BID PO ; Start 12/01/16 at 09:00; Status Hold Diatrizoate Meglum/ Diatrizoate Sod 18 ml 18 ml ONCE ONCE PO Last administered on 12/01/16t 00:54; Start 12/01/16 at 01:00; Stop 12/01/16 at 01:01; Status DC Levofloxacin/ Dextrose (Levaquin 750 Mg Premix Inj) 150 ml @ 100 mls/hr Q48H IV Last administered on 12/01/16t 05:21; Start 12/01/16 at 05:00 Warfarin Sodium (Coumadin) 2.5 mg DAILY@16 PO ; Start 12/01/16 at 16:00 A/P Problem List: (1) Weakness ICD Code: R53.1 Status: Acute (2) Dizziness ICD Code: R42 Status: Acute (3) Lightheadedness ICD Code: R42 Status: Acute (4) Atrial fibrillation ICD Code: I48.91 Status: Chronic (5) COPD (chronic obstructive pulmonary disease) ICD Code: J44.9 Status: Chronic (6) CHF (congestive heart failure) ICD Code: I50.9 Status: Acute (7) Transaminitis ICD Code: R74.0 Status: Acute (8) Renal insufficiency ICD Code: N28.9 Status: Acute (9) Type 2 diabetes mellitus ICD Code: E11.9 Status: Chronic (10) Anemia ICD Code: D64.9 Status: Chronic Assessment and Plan Mr. 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 Weakness with recent fall - Head CT was negative - pending physical therapy consult to improve strength and mobility - Case management consult; may need placement if pt agrees- would also need to explore family dynamics regarding care of patient at home - Urinalysis with C&S if indicated Dizziness/lightheadedness - Echocardiogram to evaluate structure and function of the heart since he does have a heart murmur. - pending report of Ultrasound of carotid arteries to rule out carotid stenosis Loculated pleural effusion - Chest CT shows extensive pleural diaphragmatic calcifications and pleural thickening in both hemothoraces characteristic prior asbestos exposure; loculated pleural effusion and left upper lobe. - Consult pulmonology; assistance is appreciated - on Levofloxacin renal adjusted dose. -will wait for Pulm recommendation. Atrial fibrillation with supratherapeutic INR 11/28/16 txed with Vitamin K - Current PT is 22.8, INR 2.0, and aPTT 33.8. - Consult pharmacy for assistance with Coumadin dosing and therapeutic monitoring - on 2.5mg po qpm COPD - ABG shows retained CO2 - PCO2 elevated at 74 - compensated, chronic - Duo nebulizers every 2 hours as needed for shortness of breath/wheezing - Supplemental oxygen titrated to maintain oxygen saturation 88-90% do NOT increase oxygen without informing doctor- pt is chronic, compensated, co2 retainer- do not increase fio2 CHF and atypical chest tightness prior to fall -denied any CP with me but he is a poor historian. asymptomatic now. continue to monitor. - Chest x-ray with no significant change to slightly improved personally reviewed image - BNP elevated at 706 (was 708 on 11/28/16) - Serial Troponin I stable 0.18, 0.17, 0.15 - Monitor I & Os - continuous cardiac telemetry to monitor for arrhythmia - echo in am Heart murmur -per patient this has been chronic. -pending chronic. Transaminitis - likely r/t cirrhosis - AST 176, ALT 138, alkaline phosphatase 125 - no prior labs available for comparison - pending repeat CMP. Ascites -asymptomatic. - CT pelvis and abdomen shows ascites in the upper abdomen with CT findings characteristic of some degree of cirrhosis and ascites tracking into the right inguinal hernia -continue to monitor. Acute renal insufficiency -RESOLVED. - BUN elevated at 41, creatinine 1.29, estimated GFR low at 53 - improved - Avoid nephrotoxins Type 2 diabetes mellitus with hyperglycemia - Blood glucose 259 on admission - conitnue to hold metformin for now in case contrast studies are needed - Accu-Cheks before meals and at bedtime with low-dose NovoLog sliding scale coverage - Bedtime snack - Treatment of hypoglycemia protocol ordered - Monitor trends in blood glucose levels and adjust treatments as indicated Anemia - Hemoglobin 10.2 on admission. -decreasing. continue to monitor. No signs of active bleeding. maybe due to hemoconcentration. DVT prophylaxis - on Coumadin Problem Qualifiers (1) CHF (congestive heart failure): Qualified Code: I50.9 - Chronic congestive heart failure, unspecified congestive heart failure type (2) Type 2 diabetes mellitus: (3) Anemia: Qualified Code: D64.9 - Anemia, unspecified type Michelle Ding MD Dec 01, 2016 10:42
[2016-12-01] MEDS: FUROSEMIDE 40 MG TAB PO SCH (11:15)
--- NOTE | 2016-12-01 13:33 | EKG ---
Date Performed: 11/30/2016 Time Performed: 17:33:43 PTAGE: 86 years EKG: ATRIAL FIBRILLATION WITH SLOW VENTRICULAR RESPONSE NONSPECIFIC ST-T WAVE CHANGES ABNORMAL E CG Since PREVIOUS TRACING , no significant change noted PREVIOUS TRACIN11/28/2016 14.09 DOCTOR: Chevy Srinivasan Interpretating Date/Time 12/01/2016 13:32:30
--- NOTE | 2016-12-01 16:10 | PD.CONS ---
Provisional Diagnosis Admission Date Nov 30, 2016 at 17:14 [place] I. Dementia without behavioral disturbance History of Present Illness Service Psychiatry Consult Requested By Primary Care Physician [facility] HPI Patient is an 86-year-old man, domicile with his ex-, retired, without any previous psychiatric history, no previous psychiatric hospitalizations, no previous suicide attempts, alcohol use disorder, medical history of A. fib, anemia, DM, CHF, renal insufficiency, brought to hospital evaluation of an elevated INR. Patient's INR was reported to be around 15 on November 28. states they went to the [facility] emergency department 2 days ago and was advised to stop taking the Coumadin. Patient's also states that she went away for a week and when she came back he had a significant change in that he could not walk well and felt dizzy. Patient was hospitalized , consulted to psychiatry due to suicidal statement a week ago. On psychiatric evaluation patient is calm, cooperative and pleasant, he says that he does not remember expressing suicidal ideation never his life. He reports good mood, denies depressive symptoms, denies anxiety, denies cody, denies psychosis. He denies suicidal and homicidal ideation, he denies visual and auditory hallucinations. Patient is just partially oriented in time and place, MMS scored 24/30. No agitation, aggressive behavior, episodic confusion reported. He denies the use of illicit drugs, occasionally alcohol. Review of Systems Constitutional: DENIES: Diaphoretic episodes, Fatigue, Fever, Weight gain, Weight loss, Chills, Dizziness, Change in appetite, Night Sweats Endocrine: DENIES: Heat/cold intolerance, Polydipsia, Polyuria, Polyphagia Eyes: DENIES: Blurred vision, Diplopia, Eye inflammation, Eye pain, Vision loss , Photosensitivity, Double Vision Ears, nose, mouth, throat: DENIES: Tinnitus, Hearing loss, Vertigo, Nasal discharge, Oral lesions, Throat pain, Hoarseness, Ear Pain, Running Nose, Epistaxis, Sinus Pain, Toothache, Odynophagia Respiratory: DENIES: Apneas, Cough, Snoring, Wheezing, Hemoptysis, Sputum production, Shortness of breath Cardiovascular: DENIES: Chest pain, Palpitations, Syncope, Dyspnea on Exertion , PND, Lower Extremity Edema, Orthopnea, Claudication Gastrointestinal: DENIES: Abdominal pain, Black stools, Bloody stools, Constipation, Diarrhea, Nausea, Vomiting, Difficulty Swallowing, Anorexia Musculoskeletal: DENIES: Joint pain, Muscle aches, Stiffness, Joint Swelling, Back pain, Neck pain Integumentary: DENIES: Abnormal pigmentation, Nail changes, Pruritus, Rash Hematologic/lymphatic: DENIES: Bruising, Lymphadenopathy Immunologic/allergic: DENIES: Eczema, Urticaria Neurologic: DENIES: Abnormal gait, Headache, Localized weakness, Paresthesias, Seizures, Speech Problems, Tremor, Poor Balance Psychiatric: DENIES: Anxiety, Confusion, Mood changes, Depression, Hallucinations, Agitation, Suicidal Ideation, Homicidal Ideation, Delusions Past Family Social History Coded Allergies: No Known Allergies (Unverified , 11/30/16) Reported Medications Cyanocobalamin (Vitamin B-12)1,000 Mcg Tab1,000 Mcg PO DAILY #1 BOTTLE Ref 0 11/30/16 Calcium Carbonate-Cholecalciferol (Calcium + D3)600-200 Mg-Unit Tab1 Tab PO DAILY 11/28/16 Furosemide 40 Mg Tab40 Mg PO DAILY #30 TAB Ref 0 11/28/16 Glucosamine 500 Mg Jpt178 Mg PO BID Ref 0 11/28/16 Warfarin 5 Mg Tab5 Mg PO SUTUWETHSA #30 TAB Ref 0 Take 1 tablet (5mg) on Monday,Monday,Monday, and Monday11/28/16 Warfarin 5 Mg Tab2.5 Mg PO MOFR #30 TAB Ref 0 Take 1/2 tablet (2.5mg) on Monday and Monday11/28/16 Metformin 1,000 Mg Tab1,000 Mg PO BIDPC #60 TAB Ref 0 With meals 11/28/16 Colestipol 1 Gm Tab1 Gm PO BID #120 TAB Ref 0 11/28/16 Discontinued Reported Medications Cyanocobalamin ER (B-12 Tr)1,000 Mcg Tab1,000 Mcg PO DAILY #1 BOTTLE Ref 0 11/28/16 Calcium Carbonate (Calcium)600 Mg Qpw222 Mg PO DAILY 09/11/15 [cholesterol pill] No Conflict Check Po Bid 09/11/15 ["water pill"] No Conflict Check40 Mg PO DAILY 09/11/15 Cyanocobalamin (B-12)500 Mcg Tzd659 Mcg PO DAILY 09/11/15 Glucosamine-Chondroitin (Glucosamine & Chondroitin 500-400 mg)1 Cap Cap Daily 09/11/15 Metformin 500 mg (Glucophage 500 mg)500 Mg Tab1,000 Mg PO BIDPC 09/11/15 Warfarin Sod (Warfarin Sodium)5 Mg Tab5 Mg PO SuTuThSa@16 09/11/15 Warfarin Sodium (Warfarin Sodium 2.5 mg)2.5 Mg Tab2.5 Mg PO MoWeFr@16 09/11/15 Current Medications Medications (Trade) Dose Ordered Sig/Evi Route Start Time Stop Time Status Last Admin Furosemide 40 mg 40 mg DAILY PO 12/01/16 09:00 12/01/16 11:15 (Coumadin Consult Pharmacy) 0 ml @ 0 mls/hr UNSCH OTHER 11/30/16 22:00 (D50w (Vial) Inj) 25 ml UNSCH PRN IV PUSH 11/30/16 22:15 (Glucagon Inj) 1 mg UNSCH PRN OTHER 11/30/16 22:15 Patient Own Medication PT OWN MED: COLESTI... BID PO 12/01/16 09:00 Hold (Levaquin 750 Mg Premix Inj) 150 ml @ 100 mls/hr Q48H IV 12/01/16 05:00 12/01/16 05:21 (Coumadin) 2.5 mg DAILY@16 PO 12/01/16 16:00 Social History Patient was born and raised in [place], he lives with his ex- in [place], he is , his highest level of education is 11th grade Physical Exam Vital Signs Vital Signs Date Time Temp Pulse Resp B/P Pulse Ox O2 Delivery O2 Flow Rate FiO2 12/01/16 12:00 98.1 65 20 108/58 94 11/30/16 19:30 Nasal Cannula 4 Mental Status Examination Speech: Unremarkable Orientation: Person, Place (partially), Time (partially) Memory: Impaired (describe) Thought Process: Logical Thought Content: Unremarkable Hallucination Type: None Attention and Concentration: Good Suicidal Ideation: No Homicidal Ideation: No Previous Homicide Attempts: No Judgement: WNL Affect: Good Mood: Appropriate Motor Activity: Normal gait Assessment & Plan Problem List: (1) Dementia Assessment & Plan: The patient doesn't present any evidence of depressive symptoms, anxiety, cody or psychosis. He denies suicidal or homicidal ideation. He denies visual and auditory hallucinations. He does seems to be confused, with visible impairment in cognition. His Mini-Mental status is 24/ 30 which might suggest the patient can't have an underlying dementia. Further collateral information and neuropsychological testing is needed to confirm the diagnosis of dementia, but this investigation can be done in outpatient basis. Patient does not meet criteria for psychiatric admission at this moment. ICD Code: F03.90 Assessment & Plan Estimated LOS: days Problem Qualifiers (1) Dementia: Miles Coello MD Dec 01, 2016 16:10
[2016-12-01] MEDS: WARFARIN SOD 2.5 MG TAB PO SCH (16:18)
--- NOTE | 2016-12-01 16:54 | EC ---
Study Study Date:12/01/2016 STUDY CONCLUSIONS SUMMARY - Left ventricle: The cavity size was normal. Wall thickness was increased in a pattern of mild LVH. Systolic function was normal. The estimated ejection fraction was in the range of 60% to 65%. Wall motion was normal; there were no regional wall motion abnormalities. Doppler parameters are consistent with abnormal left ventricular relaxation (grade 1 diastolic dysfunction). - Ventricular septum: The contour showed systolic flattening. These changes are consistent with RV pressure overload. - Aortic valve: Transvalvular velocity was increased. 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 Valve area: 0.8cm^2(VTI). Valve area: 0.81cm^2 (Vmax). - Mitral valve: Mild regurgitation. - Left atrium: The atrium was moderately dilated. - Right ventricle: The cavity size was dilated. Wall thickness was normal. - Right atrium: The atrium was moderately dilated. - Tricuspid valve: Mild-moderate regurgitation. - Pulmonary arteries: Systolic pressure was severely increased. PA peak pressure: 75mm Hg (S). If LV function is below 40, please consider prescribing an ACEI or ARB or document rationale for non-use. PROCEDURE DATA STUDY STATUS: Elective. Procedure: Transthoracic echocardiography. Image quality was good. Scanning was performed from the parasternal, apical, and subcostal acoustic windows. Study completion: The patient tolerated the procedure well. Transthoracic echocardiography. M-mode, complete 2D, complete spectral Doppler, and color Doppler. Height: Height: 68in. Weight: Weight: 171.6lb. Body mass index: BMI: 26.2kg/m^2. Body surface area: BSA: 1.92m^2. Patient status: Inpatient. CARDIAC ANATOMY LEFT VENTRICLE: The cavity size was normal. Wall thickness was increased in a pattern of mild LVH. Systolic function was normal. The estimated ejection fraction was in the range of 60% to 65%. Wall motion was normal; there were no regional wall motion abnormalities. Doppler parameters are consistent with abnormal left ventricular relaxation (grade 1 diastolic dysfunction). AORTIC VALVE: Trileaflet; mildly thickened, moderately calcified leaflets. Doppler: Transvalvular velocity was increased. 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 No regurgitation. Valve area: 0.8cm^2(VTI). Indexed valve area: 0.42cm^2/m^2 (VTI). Valve area: 0.81cm^2 (Vmax). Indexed valve area: 0.42cm^2/m^2 (Vmax). Mean gradient: 22mm Hg (S). Peak gradient: 60mm Hg (S). AORTA: Aortic root: The aortic root was poorly visualized and normal in size. MITRAL VALVE: Structurally normal valve. Doppler: Transvalvular velocity was within the normal range. There was no evidence for stenosis. Mild regurgitation. Peak gradient: 5mm Hg (D). LEFT ATRIUM: The atrium was moderately dilated. RIGHT VENTRICLE: The cavity size was dilated. Wall thickness was normal. VENTRICULAR SEPTUM: The contour showed systolic flattening. These changes are consistent with RV pressure overload. PULMONIC VALVE: Doppler: Transvalvular velocity was within the normal range. There was no evidence for stenosis. No regurgitation. TRICUSPID VALVE: Structurally normal valve. Doppler: Transvalvular velocity was within the normal range. Mild-moderate regurgitation. PULMONARY ARTERY: Systolic pressure was severely increased. RIGHT ATRIUM: The atrium was moderately dilated. PERICARDIUM: There was no pericardial effusion. SYSTEMIC VEINS: Inferior vena cava: The vessel was dilated. Patient weight: 171.6lb _Ejection fraction:_ 65-75% _Fractional shortening:_ 32% up to 5Kg 5-11.5Kg 11.6-22.9Kg 23-45Kg 45-57Kg Aortic Root 7-13 <17 13-22 17-27 17-27 LA diam 6-13 <23 24-38 33-47 37-40 RVID 10-17 7-15 7-15 7-18 8-17 LVIDd 12-22 <32 24-38 33-47 37-40 LVPW 2-4 3-6 5-7 6-8 7-8 IVS 2-4 3-6 5-7 6-8 7-8 BASIC MEASUREMENTS ADULT NORMAL Left ventricle LV internal dimension, ED, chordal 48.7 mm 43-52 level, PLAX LV internal dimension, ES, chordal 33.5 mm 23-38 level, PLAX Fractional shortening, chordal level, 31 % >29 PLAX LV posterior wall thickness, ED 9.84 mm IVS/LVPW ratio, ED 1 <1.3 Ventricular septum Septal thickness, ED 9.84 mm Aortic valve Leaflet separation *14 mm 15-26 Aorta Root diameter, ED 37 mm Left atrium Anterior-posterior dimension 50 mm Anterior-posterior dimension index *2.6 cm/m^2 <2.2 Right ventricle RV internal dimension, ED, PLAX *38.6 mm 19-38 BASIC MEASUREMENTS ADULT NORMAL Aortic valve Leaflet separation *14 mm 15-26 DOPPLER MEASUREMENTS ADULT NORMAL Main pulmonary artery Pressure, S *75 mm Hg =30 Aortic valve Peak velocity, S 335 cm/s Mean velocity, S 203 cm/s VTI, S 74.1 cm Mean gradient, S 22 mm Hg Peak gradient, S 60 mm Hg Valve area, VTI 0.8 cm^2 Valve area index, VTI 0.42 cm^2/m^2 Valve area, Vmax 0.81 cm^2 Valve area index, Vmax 0.42 cm^2/m^2 Mitral valve Peak E-wave velocity 110 cm/s Deceleration time *131 ms 150-230 Peak gradient, D 5 mm Hg Tricuspid valve Regurgitant peak velocity 406 cm/s Peak RV-RA gradient, S 66 mm Hg Maximal regurgitant velocity 406 cm/s Systemic veins Estimated CVP 10 mm Hg Right ventricle RV pressure, S *76 mm Hg <30 Pulmonic valve Peak velocity, S 54.1 cm/s LEGEND: Mean values are shown as u=mean value. Asterisk (*) jackson values outside specified normal range. Prepared and signed by Pierce Conner [id number]
--- NOTE | 2016-12-01 17:48 | RADRPT ---
EXAM DATE/TIME: 12/01/2016 08:45 [place] COMPARISON: No previous studies available for comparison. INDICATIONS : Syncope. MEDICAL HISTORY : Hypercholesterolemia. Hypertension. Chronic obstructive pulmonary disease. CAD. A-Fib. Diabetes. Ingu inal hernia. SURGICAL HISTORY : CABG. Appendectomy. Inguinal hernia repair. ENCOUNTER: Initial ACUITY: 1 day PAIN SCORE: 0/10 LOCATION: Bilateral neck PEAK SYSTOLIC VELOCITIES (cm/sec): ICA/CCA RATIO: Right: 1.0 Left: 5.3 ICA: Right: 108 Left: 473 CCA: Right: 102 Left: 88 ECA: Right: 98 Left: 136 VERTEBRAL: Right: 74 antegrade Left: 73 antegrade Elevated flow velocities and ICA/CCA ratios have been found to correlate with increased degrees of vessel stenosis, calculated as percentage of diameter relative to a normal segment of distal ICA/CCA FINDINGS: There is minimal plaque in the right internal carotid artery without evidence for hemodynamically sig nificant stenosis. There is focal severe plaque in the proximal left internal carotid artery with markedly elevated PSV ratio and peak systolic velocity. CONCLUSION: 1. 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 This would be better evaluated with CTA carotids. Darren Bennett MD on December 01, 2016 at 17:45 Board Certified Radiologist. This report was verified electronically.
[2016-12-02] VITALS (9 sets, daily range): BP systolic 116–141; BP diastolic 57–62; PULSE 51–63; RESP 16–20; TEMP 97.3–98.6; O2SAT 87–94
[2016-12-02] MEDS: INSULIN ASPART SUPPLEMENTAL SCALE SQ SCH ×4 (06:05→21:27)
--- NOTE | 2016-12-02 06:23 | MB ---
cc: JHOAN BARNETT DATE OF CONSULTATION 12/01/2016 HISTORY Mr. Israel is an 86-year-old white male who presented to the hospital with chief complaint of weakness, lightheadedness, dizziness and apparently his family found him confused. There was also a question of whether or not he had expressed an interest in suicide and Psychiatry has already seen him and found him not to be suicidal, although did concur that he was confused and might have dementia. 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 He apparently uses 3 liters of oxygen at home and his initial blood gases on 4 liters of oxygen show his pO2 was 80 with a pH of 7.39 and a pCO2 of 74, obviously a very severely compensated respiratory acidosis consistent with longstanding chronic lung disease. He also had a CT of his chest which revealed extensive pleural and diaphragmatic calcifications with pleural thickening in both sides of the chest, probably consistent with old asbestos exposure. He had a loculated pleural effusion along the left upper lobe as well as significant ascites in the abdomen. He had some patchy consolidation in both lung bases as well. Multiple abnormalities here on this CAT scan with nothing to compare in terms of its chronicity. The patient at the present time is not complaining of any specific pulmonary problems. He denies cough, chest pain, hemoptysis, purulent sputum. He says he is dizzy and feels weak when he ambulates but no specific complaint of shortness of breath. PAST MEDICAL HISTORY 1. Coronary artery disease. Had bypass surgery about 20 years ago. 2. Chronic atrial fibrillation on warfarin. 3. Hypertension. 4. Type 2 diabetes. PAST SURGICAL HISTORY 1. Bypass surgery 20 years ago. 2. Inguinal hernia repair. 3. Appendectomy. SOCIAL HISTORY The patient lives with his ex- here locally. Apparently no current smoking or alcohol use. REVIEW OF SYSTEMS Really difficult to take from the patient but no obvious significant pulmonary symptoms at the present time. PHYSICAL EXAMINATION GENERAL: An elderly white male, confused for details of this history. VITAL SIGNS: 98 degrees, pulse 65, blood pressure 108/58, respirations 18 and his saturation is 94-95% on O2. EYES: Sclerae pale, anicteric. NECK: Neck veins are not distended. LUNGS: Coarse fibrotic sounds in both lungs but no wheezing. No moist rhonchi. Regular rhythm. No harsh murmur. ABDOMEN: Protuberant abdomen. Soft, nontender. EXTREMITIES: No pitting ankle edema. LABORATORY DATA White count is 4000, hemoglobin is 8.6. INR was 2. BUN 40 with a creatinine of 1.1. Liver functions are mildly elevated. His BNP was 700. Bicarbonate was elevated at 44, consistent with that marked elevation in pCO2 with the blood gas. DISCUSSION Mr. Israel presents with nondescript complaints, really a poor historian but apparently had been somewhat more confused than usual and weak. Clearly, based on the blood gases and the CT scan, he has severe chronic pulmonary disease although he is compensated and oxygenation is adequate. If he were not taking his oxygen he certainly could get hypoxic and get more confused or weak. Without any active pulmonary symptoms at the present time, I do not know that any further diagnostic studies will be helpful in this circumstance, but maybe additional history can be obtained from his ex- to explain what his chronic pulmonary problems are. Certainly we will continue his oxygen at this point. I will order p.r.n. aerosol treatments if he does develop dyspnea. Further diagnostic and/or therapeutic intervention will depend on his ongoing clinical course. R. MD ARELIS Ruiz/MILTON /6:09 PM /6:05 AM
[2016-12-02 07:46] LABS: INTERNATIONAL NORMALIZED RATIO 1.3 RATIO; PROTHROMBIN TIME - PATIENT 14.9 SEC (9.8-11.6)
[2016-12-02 07:53] LABS: MEAN CORPUSCULAR HEMOGLOBIN 33.5 PG (27.0-34.0); MEAN CORPUSCULAR HGB CONC 32.9 % (32.0-36.0); PLATELET COUNT 185 TH/MM3 (150-450); RED BLOOD COUNT 2.94 MIL/MM3 (4.50-5.90); RED CELL DISTRIBUTION WIDTH 13.9 % (11.6-17.2); REVIEW FLAG FINAL; WHITE BLOOD COUNT 5.1 TH/MM3 (4.0-11.0)
[2016-12-02 08:16] LABS: ALKALINE PHOSPHATASE 91 U/L (45-117); ALT (GPT) 66 U/L (12-78); ANION GAP 3 MEQ/L (5-15); AST (GOT) 41 U/L (15-37); BICARBONATE 43.6 MEQ/L (21.0-32.0); BLOOD UREA NITROGEN 42 MG/DL (7-18); CHLORIDE 95 MEQ/L (98-107); GLOMERULAR FILTRATION RATE 61 ML/MIN (>89); POTASSIUM 4.1 MEQ/L (3.5-5.1); SODIUM (NA) 142 MEQ/L (136-145); TOTAL BILIRUBIN ADULT 0.6 MG/DL (0.2-1.0)
[2016-12-02] MEDS: FUROSEMIDE 40 MG TAB PO SCH (08:48)
[2016-12-02] MEDS: WARFARIN SOD 2.5 MG TAB PO SCH (15:19)
--- NOTE | 2016-12-02 16:19 | HHI.PR ---
Subjective Remarks f/u for confusion patient at baseline seems to be more dementia. He is asking to go home. Able to tell me his name and location. Cannot tell me date. He was able to answer questions during the interview. Denied any CP, SOB, palpitations, lightheadedness/dizziness. Objective Vitals Vital Signs Date Time Temp Pulse Resp B/P Pulse Ox O2 Delivery O2 Flow Rate FiO2 12/02/16 12:00 97.4 62 18 116/58 90 12/02/16 08:00 97.4 61 20 127/62 88 12/02/16 07:59 94 Nasal Cannula 2.00 12/02/16 04:00 97.9 51 16 141/61 94 12/02/16 02:59 62 12/02/16 00:00 97.3 56 16 133/61 93 12/01/16 20:02 95 Nasal Cannula 4.00 12/01/16 20:00 98.1 55 16 113/56 97 I/O 12/01/16 12/01/16 12/01/16 12/02/16 12/02/16 12/02/16 07:00 15:00 23:00 07:00 15:00 23:00 Intake Total 1080 ml 480 ml 360 ml 0 ml Output Total 300 ml 350 ml 200 ml 50 ml Balance 780 ml 130 ml 160 ml -50 ml Intake Oral 1080 ml 480 ml 360 ml 0 ml Output Urine Total 300 ml 350 ml 200 ml 50 ml # Voids 1 1 # Bowel Movements 0 0 0 Result Diagram: 12/02/1662012/02/16620 Objective Remarks GENERAL: CARDIOVASCULAR: Regular rate and rhythm 4/6 systolic heart murmur heard in all areas. RESPIRATORY: Breath sounds equal bilaterally. No accessory muscle use. GASTROINTESTINAL: Abdomen soft, non-tender, nondistended. MUSCULOSKELETAL: No cyanosis, or edema. BACK: Nontender without obvious deformity. No CVA tenderness. Medications and IVs Current Medications Albuterol/ Ipratropium (Duoneb Neb) 1 ampule ONCE ONCE INH Last administered on 11/30/16t 15:32; Start 11/30/16 at 15:15; Stop 11/30/16 at 15:16; Status DC Albuterol/ Ipratropium (Duoneb Neb) 1 ampule Q2HR NEB PRN NEB shortness of breath/wheezing; Start 11/30/16 at 22:00 Furosemide (Lasix) 40 mg DAILY PO Last administered on 12/02/16 08:48; Start 12/01/16 at 09:00 Non-Formulary Medication 1 gm 1 gm BID PO CM; Start 11/30/16 at 22:00; Status UNV Pharmacy Profile Note (Coumadin Consult Pharmacy) 0 ml @ 0 mls/hr UNSCH OTHER ; Start 11/30/16 at 22:00 Dextrose (D50w (Vial) Inj) 25 ml UNSCH PRN IV PUSH HYPOGLYCEMIA-SEE COMMENTS; Start 11/30/16 at 22:15 Glucagon (Glucagon Inj) 1 mg UNSCH PRN OTHER HYPOGLYCEMIA-SEE COMMENTS; Start 11/30/16 at 22:15 Insulin Aspart (NovoLOG SUPPLEMENTAL SCALE) 1 ACHS SLIDING SCALE SQ Last administered on 12/02/16 15:21; Start 12/01/16 at 07:00 Patient Medication Teaching (Coumadin Booklet) 1 ONCE ONCE XX Last administered on 12/01/16 00:54; Start 11/30/16 at 22:15; Stop 11/30/16 at 22:16; Status DC Patient Own Medication PT OWN MED: COLESTI... BID PO ; Start 12/01/16 at 09:00; Status Hold Diatrizoate Meglum/ Diatrizoate Sod 18 ml 18 ml ONCE ONCE PO Last administered on 12/01/16 00:54; Start 12/01/16 at 01:00; Stop 12/01/16 at 01:01; Status DC Levofloxacin/ Dextrose (Levaquin 750 Mg Premix Inj) 150 ml @ 100 mls/hr Q48H IV Last administered on 12/01/16 05:21; Start 12/01/16 at 05:00; Stop 12/02/16 at 14:06; Status DC Warfarin Sodium (Coumadin) 2.5 mg DAILY@16 PO Last administered on 12/02/16 15 :19; Start 12/01/16 at 16:00 Levofloxacin (Levaquin) 750 mg Q48H PO ; Start 12/03/16 at 05:00 A/P Problem List: (1) Weakness ICD Code: R53.1 Status: Acute (2) Dizziness ICD Code: R42 Status: Acute (3) Lightheadedness ICD Code: R42 Status: Acute (4) Atrial fibrillation ICD Code: I48.91 Status: Chronic (5) COPD (chronic obstructive pulmonary disease) ICD Code: J44.9 Status: Chronic (6) CHF (congestive heart failure) ICD Code: I50.9 Status: Acute (7) Transaminitis ICD Code: R74.0 Status: Acute (8) Renal insufficiency ICD Code: N28.9 Status: Acute (9) Type 2 diabetes mellitus ICD Code: E11.9 Status: Chronic (10) Anemia ICD Code: D64.9 Status: Chronic Assessment and Plan Mr. 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 Weakness with recent fall -seemed to resolved. maybe due to dehydration. - Head CT was negative - physical therapy recommend going to SNF. Dizziness/lightheadedness - Echocardiogram to evaluate structure and function of the heart since he does have a heart murmur. - us shows high grade stenosis. recommend getting CTA of carotids. will place order. Loculated pleural effusion - Chest CT shows extensive pleural diaphragmatic calcifications and pleural thickening in both hemothoraces characteristic prior asbestos exposure; loculated pleural effusion and left upper lobe. -d/c levoquin -Pulm ff and stated this is chronic. he was cleared by pulm. Atrial fibrillation with supratherapeutic INR 11/28/16 txed with Vitamin K - Current PT is 22.8, INR 2.0, and aPTT 33.8. - Consult pharmacy for assistance with Coumadin dosing and therapeutic monitoring - on 2.5mg po qpm COPD - ABG shows retained CO2 - PCO2 elevated at 74 - compensated, chronic - Duo nebulizers every 2 hours as needed for shortness of breath/wheezing - Supplemental oxygen titrated to maintain oxygen saturation 88-90% do NOT increase oxygen without informing doctor- pt is chronic, compensated, co2 retainer- do not increase fio2 CHF and atypical chest tightness prior to fall -denied any CP with me but he is a poor historian. asymptomatic now. continue to monitor. - Chest x-ray with no significant change to slightly improved personally reviewed image - BNP elevated at 706 (was 708 on 11/28/16) - Serial Troponin I stable 0.18, 0.17, 0.15 - Monitor I & Os - continuous cardiac telemetry to monitor for arrhythmia Heart murmur -per patient this has been chronic. -pending chronic. Transaminitis - likely r/t cirrhosis - AST 176, ALT 138, alkaline phosphatase 125 - no prior labs available for comparison - pending repeat CMP. Ascites -asymptomatic. - CT pelvis and abdomen shows ascites in the upper abdomen with CT findings characteristic of some degree of cirrhosis and ascites tracking into the right inguinal hernia -continue to monitor. Acute renal insufficiency -RESOLVED. - BUN elevated at 41, creatinine 1.29, estimated GFR low at 53 - improved - Avoid nephrotoxins Type 2 diabetes mellitus with hyperglycemia - Blood glucose 259 on admission - conitnue to hold metformin for now in case contrast studies are needed - Accu-Cheks before meals and at bedtime with low-dose NovoLog sliding scale coverage - Bedtime snack - Treatment of hypoglycemia protocol ordered - Monitor trends in blood glucose levels and adjust treatments as indicated Anemia - Hemoglobin 10.2 on admission. -decreasing. continue to monitor. No signs of active bleeding. maybe due to hemoconcentration. DVT prophylaxis - on Coumadin Discharge Planning once medically stable d/c to SNF if okay with patient and family. Problem Qualifiers (1) CHF (congestive heart failure): Qualified Code: I50.9 - Chronic congestive heart failure, unspecified congestive heart failure type (2) Type 2 diabetes mellitus: (3) Anemia: Qualified Code: D64.9 - Anemia, unspecified type Michelle Ding MD Dec 02, 2016 16:19
[2016-12-02] MEDS ORDERED: IOHEXOL 350 MG/ML 10 ML VIAL (for RAD DIAG) IV ONE (22:50)
[2016-12-03] VITALS (9 sets, daily range): BP systolic 112–132; BP diastolic 58–66; PULSE 50–70; RESP 18–20; TEMP 97.6–98.6; O2SAT 90–95
--- NOTE | 2016-12-03 01:49 | RADRPT ---
EXAM DATE/TIME: 12/02/2016 22:41 [facility] COMPARISON: US CAROTID ARTERIES, December 01, 2016, 8:45. INDICATIONS : Abnormal ultrasound. Evaluate stenosis. IV CONTRAST: 75 cc Omnipaque 350 (iohexol) IV RADIATION DOSE: 15.97 CTDIvol (mGy) MEDICAL HISTORY : Congestive heart failure. Hypertension. Diabetes mellitus type 2. SURGICAL HISTORY : CABG ENCOUNTER: Initial ACUITY: 1 day PAIN SCALE: 0/10 LOCATION: neck Elevated flow velocities and ICA/CCA ratios have been found to correlate with increased degrees of vessel stenosis, calculated as percentage of diameter relative to a normal segment of distal ICA/CCA. TECHNIQUE: Volumetric scanning was performed using a multirow detector CT scanner. The data was post processed with a variety of visualization algorithms including full-volume maximum intensity projection, multip lanar sliding thin-slab reformation, curved-planar reformation, and surface-rendering techniques. Us ing automated exposure control and adjustment of the mA and/or kV according to patient size, radiatio n dose was kept as low as reasonably achievable to obtain optimal diagnostic quality images. FINDINGS: AORTIC ARCH: There is a 4-vessel origin of the great vessels from the aorta. No evidence of ostial narrowing. RIGHT CAROTID: Common carotid artery is normal dimension. There is prominent calcified plaque in the proximal inter nal carotid artery which causes a short segment 80% stenosis. No poststenotic dilatation. The exter nal carotid artery is intact. LEFT CAROTID: The common carotid artery is intact. The carotid bulb has a normal configuration without ulceration or narrowing. There is calcification about the carotid bulb and proximal internal carotid artery wit hout significant luminal narrowing. The internal carotid artery lumen is smooth without stenosis. T he external carotid artery is intact. VERTEBRALS: The vertebral arteries have a symmetric diameter. No stenotic lesions are seen. CONCLUSION: Short segment high grade 80% stenosis of the proximal right internal carotid artery due to calcified plaque. Timoteo Major MD on December 03, 2016 at 1:30 Board Certified Radiologist. This report was verified electronically.
[2016-12-03] MEDS ORDERED: LEVOFLOXACIN 750 MG TAB PO SCH (05:00)
[2016-12-03] MEDS: INSULIN ASPART SUPPLEMENTAL SCALE SQ SCH ×4 (06:40→20:54)
[2016-12-03 07:09] LABS: INTERNATIONAL NORMALIZED RATIO 1.5 RATIO; PROTHROMBIN TIME - PATIENT 16.7 SEC (9.8-11.6)
[2016-12-03] MEDS: FUROSEMIDE 40 MG TAB PO SCH (08:24)
--- NOTE | 2016-12-03 14:11 | HHI.PR ---
Subjective Remarks f/u for AMS patient's daughter and ex are at the bedside. patient is a poor historian but he is able to have appropriate conversation. Per daughter she stated patient did c/o left sided weakness 1 week ago that resolved. When I asked patient this he denied it and stated he never did. and daughter stated patient is at baseline and he does get intermittently confused at times. Objective Vitals Vital Signs Date Time Temp Pulse Resp B/P Pulse Ox O2 Delivery O2 Flow Rate FiO2 12/03/16 10:04 93 Nasal Cannula 2.00 12/03/16 08:00 97.7 67 20 115/58 90 12/03/16 04:00 97.6 60 20 112/61 93 12/03/16 01:33 56 12/03/16 00:16 97.8 56 20 116/59 92 12/02/16 20:00 98.6 58 20 125/62 92 12/02/16 16:00 98.0 55 16 125/57 87 I/O 12/02/16 12/02/16 12/02/16 12/03/16 12/03/16 12/03/16 07:00 15:00 23:00 07:00 15:00 23:00 Intake Total 0 ml 480 ml 240 ml 1080 ml Output Total 50 ml 375 ml 25 ml Balance -50 ml 105 ml 215 ml 1080 ml Intake Oral 0 ml 480 ml 240 ml 1080 ml Output Urine Total 50 ml 375 ml 25 ml # Voids 1 3 # Bowel Movements 0 1 Result Diagram: 12/02/1662012/02/1621 Objective Remarks GENERAL: CARDIOVASCULAR: Regular rate and rhythm 4/6 systolic heart murmur heard in all areas. RESPIRATORY: Breath sounds equal bilaterally. No accessory muscle use. GASTROINTESTINAL: Abdomen soft, non-tender, nondistended. MUSCULOSKELETAL: No cyanosis, or edema. BACK: Nontender without obvious deformity. No CVA tenderness. Medications and IVs Current Medications Albuterol/ Ipratropium (Duoneb Neb) 1 ampule ONCE ONCE INH Last administered on 11/30/16t 15:32; Start 11/30/16 at 15:15; Stop 11/30/16 at 15:16; Status DC Albuterol/ Ipratropium (Duoneb Neb) 1 ampule Q2HR NEB PRN NEB shortness of breath/wheezing; Start 11/30/16 at 22:00 Furosemide (Lasix) 40 mg DAILY PO Last administered on 12/03/16 08:24; Start 12/01/16 at 09:00 Non-Formulary Medication 1 gm 1 gm BID PO CM; Start 11/30/16 at 22:00; Status UNV Pharmacy Profile Note (Coumadin Consult Pharmacy) 0 ml @ 0 mls/hr UNSCH OTHER ; Start 11/30/16 at 22:00 Dextrose (D50w (Vial) Inj) 25 ml UNSCH PRN IV PUSH HYPOGLYCEMIA-SEE COMMENTS; Start 11/30/16 at 22:15 Glucagon (Glucagon Inj) 1 mg UNSCH PRN OTHER HYPOGLYCEMIA-SEE COMMENTS; Start 11/30/16 at 22:15 Insulin Aspart (NovoLOG SUPPLEMENTAL SCALE) 1 ACHS SLIDING SCALE SQ Last administered on 12/03/16 11:38; Start 12/01/16 at 07:00 Patient Medication Teaching (Coumadin Booklet) 1 ONCE ONCE XX Last administered on 12/01/16 00:54; Start 11/30/16 at 22:15; Stop 11/30/16 at 22:16; Status DC Patient Own Medication PT OWN MED: COLESTI... BID PO ; Start 12/01/16 at 09:00; Status Hold Diatrizoate Meglum/ Diatrizoate Sod 18 ml 18 ml ONCE ONCE PO Last administered on 12/01/16 00:54; Start 12/01/16 at 01:00; Stop 12/01/16 at 01:01; Status DC Levofloxacin/ Dextrose (Levaquin 750 Mg Premix Inj) 150 ml @ 100 mls/hr Q48H IV Last administered on 12/01/16 05:21; Start 12/01/16 at 05:00; Stop 12/02/16 at 14:06; Status DC Warfarin Sodium (Coumadin) 2.5 mg DAILY@16 PO Last administered on 12/02/16 15 :19; Start 12/01/16 at 16:00 Levofloxacin (Levaquin) 750 mg Q48H PO ; Start 12/03/16 at 05:00; Stop 12/03/16 at 05:00; Status DC Iohexol (Omnipaque 350 Inj) 75 ml STK-MED ONCE IV Last administered on 3/10/ 17at 22:50; Start 12/02/16 at 22:50; Stop 12/02/16 at 22:51; Status DC Aspirin (Ecotrin Ec) 81 mg DAILY PO ; Start 12/03/16 at 14:00 A/P Problem List: (1) Weakness ICD Code: R53.1 Status: Acute (2) Dizziness ICD Code: R42 Status: Acute (3) Lightheadedness ICD Code: R42 Status: Acute (4) Atrial fibrillation ICD Code: I48.91 Status: Chronic (5) COPD (chronic obstructive pulmonary disease) ICD Code: J44.9 Status: Chronic (6) CHF (congestive heart failure) ICD Code: I50.9 Status: Acute (7) Transaminitis ICD Code: R74.0 Status: Acute (8) Renal insufficiency ICD Code: N28.9 Status: Acute (9) Type 2 diabetes mellitus ICD Code: E11.9 Status: Chronic (10) Anemia ICD Code: D64.9 Status: Chronic Assessment and Plan Mr. 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 Weakness with recent fall -seemed to resolved. maybe due to dehydration. - Head CT was negative - physical therapy recommend going to SNF. Dizziness/lightheadedness - Echocardiogram showed EF of 60-65% and mod to severe aortic stenosis. - us shows high grade stenosis. CTA of right carotids showed 80% stenosis carotid stenosis -CTA showed 80%. consult vascular surgeon. -will put on ASA and check lipid profile. mod to severe aortic stenosis -asymptomatic. 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 Loculated pleural effusion - Chest CT shows extensive pleural diaphragmatic calcifications and pleural thickening in both hemothoraces characteristic prior asbestos exposure; loculated pleural effusion and left upper lobe. -d/c levoquin -Pulm ff and stated this is chronic. he was cleared by pulm. Atrial fibrillation with supratherapeutic INR 11/28/16 txed with Vitamin K - Current PT is 22.8, INR 2.0, and aPTT 33.8. - Consult pharmacy for assistance with Coumadin dosing and therapeutic monitoring - on 2.5mg po qpm COPD - ABG shows retained CO2 - PCO2 elevated at 74 - compensated, chronic - Duo nebulizers every 2 hours as needed for shortness of breath/wheezing - Supplemental oxygen titrated to maintain oxygen saturation 88-90% do NOT increase oxygen without informing doctor- pt is chronic, compensated, co2 retainer- do not increase fio2 CHF and atypical chest tightness prior to fall -denied any CP with me but he is a poor historian. asymptomatic now. continue to monitor. - Chest x-ray with no significant change to slightly improved personally reviewed image - BNP elevated at 706 (was 708 on 11/28/16) - Serial Troponin I stable 0.18, 0.17, 0.15 - Monitor I & Os - continuous cardiac telemetry to monitor for arrhythmia Transaminitis - likely r/t cirrhosis - AST 176, ALT 138, alkaline phosphatase 125 - no prior labs available for comparison -stable. Ascites -asymptomatic. - CT pelvis and abdomen shows ascites in the upper abdomen with CT findings characteristic of some degree of cirrhosis and ascites tracking into the right inguinal hernia -continue to monitor. Acute renal insufficiency -RESOLVED. - BUN elevated at 41, creatinine 1.29, estimated GFR low at 53 - improved - Avoid nephrotoxins Type 2 diabetes mellitus with hyperglycemia - Blood glucose 259 on admission - conitnue to hold metformin for now in case contrast studies are needed - Accu-Cheks before meals and at bedtime with low-dose NovoLog sliding scale coverage - Bedtime snack - Treatment of hypoglycemia protocol ordered - Monitor trends in blood glucose levels and adjust treatments as indicated Anemia - stable. -no signs of active bleeding. DVT prophylaxis - on Coumadin Discharge Planning will need to consult vascular surgeon due to high grade carotid stenosis. once medically stable can be d/c to SNF. patient requires longer hospitalization and qualifies for inpatient admission. d/w with patient, his ex and daughter at the bedside. Problem Qualifiers (1) CHF (congestive heart failure): Qualified Code: I50.9 - Chronic congestive heart failure, unspecified congestive heart failure type (2) Type 2 diabetes mellitus: (3) Anemia: Qualified Code: D64.9 - Anemia, unspecified type Michelle Ding MD Dec 03, 2016 14:11
[2016-12-03] MEDS: ASPIRIN EC 81 MG TABEC PO SCH (15:54)
[2016-12-03] MEDS: WARFARIN SOD 2.5 MG TAB PO SCH (15:54)
--- NOTE | 2016-12-03 18:18 | PD.CAR.PN ---
CVT Progress Note Subjective/Hospital Course: Patient evaluated Full consult dictated CTA of the neck ordered Thanks J Objective: Vital Signs Date Time Temp Pulse Resp B/P Pulse Ox O2 Delivery O2 Flow Rate FiO2 12/03/16 12:00 98.6 70 20 132/66 90 12/03/16 10:04 93 Nasal Cannula 2.00 12/03/16 08:00 97.7 67 20 115/58 90 12/03/16 04:00 97.6 60 20 112/61 93 12/03/16 01:33 56 12/03/16 00:16 97.8 56 20 116/59 92 12/02/16 20:00 98.6 58 20 125/62 92 Labs: Laboratory Tests Test 12/03/16 06:29 Prothrombin Time 16.7 SEC (9.8-11.6) Prothromb Time International 1.5 RATIO Ratio Result Diagram: 12/02/1662012/02/16620 Emily Brantley MD Dec 03, 2016 18:18
[2016-12-04] VITALS (10 sets, daily range): BP systolic 122–140; BP diastolic 58–86; PULSE 54–70; RESP 18–20; TEMP 97.9–98.4; O2SAT 88–96
--- NOTE | 2016-12-04 04:42 | MB ---
cc: EMILY MENON MD DATE OF CONSULTATION: 12/04/2016 REASON FOR CONSULTATION: Right carotid artery stenosis, TIAs and hypertension. HISTORY OF PRESENT DISEASE: This 86-year-old gentleman presents to the hospital with weakness in both legs inability to walk dizziness and fall. He says that symptom started about a month ago, however, he is a very poor historian so I am not sure how correct this is. The patient is being worked up and in the process of workup he was found to have tight right internal carotid artery stenosis, hence the consultation. PAST MEDICAL HISTORY: 1. Mild dementia. 2. Hypertension 3. 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 4. Diabetes mellitus. 5. Atrial fibrillation on Coumadin. 6. Coronary artery disease. Status post coronary artery bypass graft about 20 years ago. It should be noted that at the time of arrival, the patient had INR of 15 and PTT greater than 180 which tells me that the patient probably does not know which medication he takes for what. SURGICAL HISTORY 1. Coronary artery bypass grafting 2. Appendectomy 3. Inguinal hernia repair while he was in the service. Patient has preserved memory for long time ago events but not for recent memory. MEDICATIONS: Can be found on record. SOCIAL HISTORY The patient smokes cigars, never smoked cigarettes, and drinks socially. PHYSICAL EXAMINATION: Reveals a pleasant 86-year-old gentleman, normocephalic. HEENT: No trauma to the head. Pupils equal and reactive. Extraocular muscles intact. Neck: Supple, bilateral carotid pulses and actually the patient does have right-sided carotid bruit. Chest: Bilateral breath sounds decreased on auscultation consistent with severe COPD and pulmonary emphysema. Heart: The patient is in slow A-fib, could be also in sinus rhythm but with occasional premature contraction, hard to tell. Abdomen: Soft. Active bowel sounds. No rebound, no guarding. No masses. Scars from previous surgery. Extremities: The patient has bilateral femoral pulses on palpation, dopplerable, popliteal and then palpable dorsalis pedis pulses, posterior tibial by Doppler. No acute vascular deficit. Back: Grossly normal. Neurologic: The patient is grossly intact. [place] coma scale 15, he has no lateralization at this point, perhaps slight droop on the left corner of his mouth. IMPRESSION/RECOMMENDATIONS I reviewed the laboratory diagnostic procedures. This gentleman indeed has right internal carotid artery stenosis initially diagnosed with ultrasound and then confirmed with CTA, which shows 80% carotid stenosis, proximal internal carotid artery with apparently large plaque with calcifications in it. The question now arises what to do with this. There are several thoughts that I could share at this point: 1. Society of vascular surgery considers generally poor candidate patients who have less than four years of natural life left. This dictum is pretty much subjective and while some value to it, it is only valued in the retrospective studies for obvious reasons. 2. This gentleman is not the greatest candidate for surgery, however, 80% stenosis with his above noted symptoms will lead to stroke if the patient does not have surgery. The risk of stroke is about 12% a year and I believe the patient already had TIAs. He is bound to have some postoperative morbidity considering his poor nutritional status, COPD, and additional factors including coronary artery disease, so all-in-all while the patient is not the greatest surgical candidate, surgery should be considered and I will discuss this with his family further at length. The patient readily agreed to surgery but I do not believe that I can completely bring to him the ins and outs of the same, so surgery is a consideration but we will see how the patient does. Another option would be endovascular stenting which may be slightly less invasive as far as immediacy although recent study showed no difference in 6 month mortality from open versus endovascular stenting. Thank you for the referral. Emily PARKER /11:22 PM /3:17 AM ISAIAH
[2016-12-04] MEDS: INSULIN ASPART SUPPLEMENTAL SCALE SQ SCH ×4 (06:12→20:02)
[2016-12-04 08:41] LABS: PROTHROMBIN TIME - PATIENT 18.7 SEC (9.8-11.6)
[2016-12-04] MEDS: ASPIRIN EC 81 MG TABEC PO SCH (08:41)
[2016-12-04] MEDS: FUROSEMIDE 40 MG TAB PO SCH (08:41)
[2016-12-04 08:42] LABS: INTERNATIONAL NORMALIZED RATIO 1.7 RATIO
[2016-12-04 08:58] LABS: HDL CHOLESTEROL 58.4 MG/DL (40.0-60.0)
--- NOTE | 2016-12-04 15:42 | HHI.PR ---
Subjective Remarks f/u for confusion and carotid stenosis. patient stated he was upset because he does not have his oxygen anymore and he cannot breath. When I spoke to nurse she stated that patient took it off while he was moving. Patient stated because he has no oxygen he feels pain all over. I asked if this was new he stated no and that its better with oxygen. patient also told me to call his daughter Jesse and not his because she is in [place] since her brother is ill. I confirmed this with his daughter and she stated this is true. Objective Vitals Vital Signs Date Time Temp Pulse Resp B/P Pulse Ox O2 Delivery O2 Flow Rate FiO2 12/04/16 12:30 98.3 70 18 140/60 93 12/04/16 12:13 64 12/04/16 09:30 95 Nasal Cannula 2.00 12/04/16 08:44 98.1 56 18 131/58 96 12/04/16 04:00 98.0 54 18 122/68 96 12/04/16 00:00 98.0 54 18 122/68 96 12/03/16 20:00 97.6 55 18 112/61 94 12/03/16 19:03 50 12/03/16 16:00 97.8 58 20 119/58 95 I/O 12/03/16 12/03/16 12/03/16 12/04/16 12/04/16 12/04/16 07:00 15:00 23:00 07:00 15:00 23:00 Intake Total 1080 ml 480 ml Output Total 845 ml 200 ml 300 ml Balance 1080 ml -365 ml -200 ml -300 ml Intake Oral 1080 ml 480 ml Output Urine Total 845 ml 200 ml 300 ml # Voids 3 3 # Bowel Movements 1 0 Result Diagram: 12/02/1662012/02/16620 Objective Remarks GENERAL: CARDIOVASCULAR: Regular rate and rhythm 4/6 systolic heart murmur heard in all areas. RESPIRATORY: Breath sounds equal bilaterally. No accessory muscle use. GASTROINTESTINAL: Abdomen soft, non-tender, nondistended. MUSCULOSKELETAL: No cyanosis, or edema. BACK: Nontender without obvious deformity. No CVA tenderness. Medications and IVs Current Medications Albuterol/ Ipratropium (Duoneb Neb) 1 ampule ONCE ONCE INH Last administered on 11/30/16t 15:32; Start 11/30/16 at 15:15; Stop 11/30/16 at 15:16; Status DC Albuterol/ Ipratropium (Duoneb Neb) 1 ampule Q2HR NEB PRN NEB shortness of breath/wheezing Last administered on 12/04/16 13:23; Start 11/30/16 at 22:00 Furosemide (Lasix) 40 mg DAILY PO Last administered on 12/04/16 08:41; Start 12/01/16 at 09:00 Non-Formulary Medication 1 gm 1 gm BID PO CM; Start 11/30/16 at 22:00; Status UNV Pharmacy Profile Note (Coumadin Consult Pharmacy) 0 ml @ 0 mls/hr UNSCH OTHER ; Start 11/30/16 at 22:00 Dextrose (D50w (Vial) Inj) 25 ml UNSCH PRN IV PUSH HYPOGLYCEMIA-SEE COMMENTS; Start 11/30/16 at 22:15 Glucagon (Glucagon Inj) 1 mg UNSCH PRN OTHER HYPOGLYCEMIA-SEE COMMENTS; Start 11/30/16 at 22:15 Insulin Aspart (NovoLOG SUPPLEMENTAL SCALE) 1 ACHS SLIDING SCALE SQ Last administered on 12/04/16 12:01; Start 12/01/16 at 07:00 Patient Medication Teaching (Coumadin Booklet) 1 ONCE ONCE XX Last administered on 12/01/16 00:54; Start 11/30/16 at 22:15; Stop 11/30/16 at 22:16; Status DC Patient Own Medication PT OWN MED: COLESTI... BID PO ; Start 12/01/16 at 09:00; Status Hold Diatrizoate Meglum/ Diatrizoate Sod 18 ml 18 ml ONCE ONCE PO Last administered on 12/01/16 00:54; Start 12/01/16 at 01:00; Stop 12/01/16 at 01:01; Status DC Levofloxacin/ Dextrose (Levaquin 750 Mg Premix Inj) 150 ml @ 100 mls/hr Q48H IV Last administered on 12/01/16 05:21; Start 12/01/16 at 05:00; Stop 12/02/16 at 14:06; Status DC Warfarin Sodium (Coumadin) 2.5 mg DAILY@16 PO Last administered on 12/03/16 15 :54; Start 12/01/16 at 16:00 Levofloxacin (Levaquin) 750 mg Q48H PO ; Start 12/03/16 at 05:00; Stop 12/03/16 at 05:00; Status DC Iohexol (Omnipaque 350 Inj) 75 ml STK-MED ONCE IV Last administered on t 22:50; Start 12/02/16 at 22:50; Stop 12/02/16 at 22:51; Status DC Aspirin (Ecotrin Ec) 81 mg DAILY PO Last administered on 12/04/16t 08:41; Start 12/03/16 at 14:00 A/P Problem List: (1) Weakness ICD Code: R53.1 Status: Acute (2) Dizziness ICD Code: R42 Status: Acute (3) Lightheadedness ICD Code: R42 Status: Acute (4) Atrial fibrillation ICD Code: I48.91 Status: Chronic (5) COPD (chronic obstructive pulmonary disease) ICD Code: J44.9 Status: Chronic (6) CHF (congestive heart failure) ICD Code: I50.9 Status: Acute (7) Transaminitis ICD Code: R74.0 Status: Acute (8) Renal insufficiency ICD Code: N28.9 Status: Acute (9) Type 2 diabetes mellitus ICD Code: E11.9 Status: Chronic (10) Anemia ICD Code: D64.9 Status: Chronic Assessment and Plan Mr. 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 Weakness with recent fall -seemed to resolved. maybe due to dehydration. -Head CT was negative - physical therapy recommend going to SNF. Dizziness/lightheadedness - Echocardiogram showed EF of 60-65% and mod to severe aortic stenosis. - us shows high grade stenosis. CTA of right carotids showed 80% stenosis carotid stenosis -CTA showed 80%. -on ASA and LDL 69 so at goal. -vascular surgeon saw patient and will talk to family about options. -i spoke to his daughter and let her know the risk and benefits of medical management vs surgical management. -Daughter who stated that are leaning more towards medical management. mod to severe aortic stenosis -asymptomatic. -can f/u with his housing development specialist as outpatient. Loculated pleural effusion - Chest CT shows extensive pleural diaphragmatic calcifications and pleural thickening in both hemothoraces characteristic prior asbestos exposure; loculated pleural effusion and left upper lobe. -d/c levoquin -Pulm ff and stated this is chronic. he was cleared by pulm. Atrial fibrillation with supratherapeutic INR 11/28/16 txed with Vitamin K - Current PT is 22.8, INR 2.0, and aPTT 33.8. - Consult pharmacy for assistance with Coumadin dosing and therapeutic monitoring - on 2.5mg po qpm COPD - ABG shows retained CO2 - PCO2 elevated at 74 - compensated, chronic - Duo nebulizers every 2 hours as needed for shortness of breath/wheezing - Supplemental oxygen titrated to maintain oxygen saturation 88-90% do NOT increase oxygen without informing doctor- pt is chronic, compensated, co2 retainer- do not increase fio2 CHF and atypical chest tightness prior to fall -denied any CP with me but he is a poor historian. asymptomatic now. continue to monitor. - Chest x-ray with no significant change to slightly improved personally reviewed image - BNP elevated at 706 (was 708 on 11/28/16) - Serial Troponin I stable 0.18, 0.17, 0.15 - Monitor I & Os - continuous cardiac telemetry to monitor for arrhythmia Transaminitis - likely r/t cirrhosis - AST 176, ALT 138, alkaline phosphatase 125 - no prior labs available for comparison -stable. Ascites -asymptomatic. - CT pelvis and abdomen shows ascites in the upper abdomen with CT findings characteristic of some degree of cirrhosis and ascites tracking into the right inguinal hernia -continue to monitor. Acute renal insufficiency -RESOLVED. - BUN elevated at 41, creatinine 1.29, estimated GFR low at 53 - improved - Avoid nephrotoxins Type 2 diabetes mellitus with hyperglycemia - Blood glucose 259 on admission - conitnue to hold metformin for now in case contrast studies are needed - Accu-Cheks before meals and at bedtime with low-dose NovoLog sliding scale coverage - Bedtime snack - Treatment of hypoglycemia protocol ordered - Monitor trends in blood glucose levels and adjust treatments as indicated Anemia - stable. -no signs of active bleeding. DVT prophylaxis - on Coumadin Discharge Planning patient will be d/c to SNF. Dr. Dee will speak to family in regards to medical management vs surgical management for carotid stenosis. Problem Qualifiers (1) CHF (congestive heart failure): Qualified Code: I50.9 - Chronic congestive heart failure, unspecified congestive heart failure type (2) Type 2 diabetes mellitus: (3) Anemia: Qualified Code: D64.9 - Anemia, unspecified type Michelle Ding MD Dec 04, 2016 15:42
[2016-12-04] MEDS: WARFARIN SOD 2.5 MG TAB PO SCH (15:56)
[2016-12-05] VITALS (8 sets, daily range): BP systolic 117–147; BP diastolic 58–74; PULSE 51–61; RESP 16–20; TEMP 97.4–98.5; O2SAT 90–100
[2016-12-05] MEDS: INSULIN ASPART SUPPLEMENTAL SCALE SQ SCH ×4 (06:08→21:00)
[2016-12-05 07:31] LABS: INTERNATIONAL NORMALIZED RATIO 1.9 RATIO; PROTHROMBIN TIME - PATIENT 21.6 SEC (9.8-11.6)
[2016-12-05] MEDS: FUROSEMIDE 40 MG TAB PO SCH (09:07)
[2016-12-05] MEDS: ASPIRIN EC 81 MG TABEC PO SCH (09:07)
[2016-12-05] MEDS ORDERED: ASPI81TA11 PO (11:51)
--- NOTE | 2016-12-05 11:51 | HHI.DS ---
Discharge Summary Admission Date Dec 03, 2016 at 13:38 Admitting Diagnosis weakness. Renal insufficiency. COPD. CHF. (1) Weakness ICD Code: R53.1 (2) Dizziness ICD Code: R42 (3) Lightheadedness ICD Code: R42 (4) Atrial fibrillation ICD Code: I48.91 (5) COPD (chronic obstructive pulmonary disease) ICD Code: J44.9 (6) CHF (congestive heart failure) ICD Code: I50.9 (7) Transaminitis ICD Code: R74.0 (8) Renal insufficiency ICD Code: N28.9 (9) Type 2 diabetes mellitus ICD Code: E11.9 (10) Anemia ICD Code: D64.9 Brief History - From Admission Mr. Israel is a forgetful 86-year-old male with a past medical history of coronary artery disease that is supposed coronary artery bypass graft 4 vessels , atrial fibrillation on Coumadin, hyperlipidemia, hypertension, COPD-oxygen dependent (3 L nasal cannula), and type 2 diabetes mellitus who presented to the emergency room 11/30/2016 for recent fall, weakness, dizziness, and lightheadedness. The patient presented to the emergency room 11/28/2016 and an INR done at that time was 15.9 with PTT of greater than 180.0 (treated with Vitamin K 10 mg). Currently, PT is 22.8, INR 2.0, and aPTT 33.8. The patient is seen in his hospital room. He is forgetful during the interview and at times loses track of the conversation. He states he came to the emergency room because he has had weakness in his legs with inability to walk, sore ankles, dizziness, and fall 1 at home. He reports his symptoms present for one month. He said he had a severe abdominal pain and tightness across his chest that lasted only a second prior to falling. He says was unable to stand up afterwards and was crawling around the house before family member found him. He reports becoming very short of breath because he lost his nasal cannula. He states he is not short of breath when he is wearing his oxygen. He denies any fever. He denies liver or kidney problems, cancer, thyroid dysfunction, seizures, or problems with blood clots such as DVT, CVA, or PE. . CBC/BMP: 12/02/16 0621 12/02/16 0621 Significant Findings Laboratory Tests Test 12/03/16 12/04/16 12/05/16 06:29 07:23 06:36 Prothrombin Time 16.7 SEC 18.7 SEC 21.6 SEC (9.8-11.6) (9.8-11.6) (9.8-11.6) PE at Discharge GENERAL: CARDIOVASCULAR: Regular rate and rhythm 4/6 systolic heart murmur heard in all areas. RESPIRATORY: Breath sounds equal bilaterally. No accessory muscle use. GASTROINTESTINAL: Abdomen soft, non-tender, nondistended. MUSCULOSKELETAL: No cyanosis, or edema. BACK: Nontender without obvious deformity. No CVA tenderness. Pt Condition on Discharge: Good Discharge Disposition: Discharge to SNF Discharge Instructions DIET: Follow Instructions for: Heart Healthy Diet, Coumadin (Warfarin) Diet Activities you can perform: Regular-No Restrictions Michelle Ding MD Dec 05, 2016 11:51
[2016-12-05] MEDS ORDERED: COUM2.5T PO (11:56)
--- NOTE | 2016-12-05 16:28 | HHI.PR ---
Subjective Remarks f/u for carotid stenosis patient has no complaints. he stated that he wants to go today. He also stated that he does not want any surgery. Denied any SOB. Denied any focal neurological deficits. Denied any KAM[place]KI, visual changes. Objective Vitals Vital Signs Date Time Temp Pulse Resp B/P Pulse Ox O2 Delivery O2 Flow Rate FiO2 12/05/16 14:25 90 Nasal Cannula 2.00 12/05/16 12:00 98.0 61 20 147/74 100 12/05/16 08:00 Nasal Cannula 2.00 12/05/16 08:00 51 12/05/16 08:00 97.9 59 18 117/58 96 12/05/16 04:00 97.4 58 16 122/59 92 12/05/16 00:00 97.4 53 18 133/61 92 12/04/16 20:46 Nasal Cannula 2.00 12/04/16 20:35 88 Nasal Cannula 2.00 12/04/16 20:00 97.9 56 18 124/59 94 12/04/16 19:29 58 12/04/16 16:53 98.4 55 20 139/86 92 I/O 12/04/16 12/04/16 12/04/16 12/05/16 12/05/16 12/05/16 07:00 15:00 23:00 07:00 15:00 23:00 Output Total 300 ml Balance -300 ml Output Urine Total 300 ml # Voids 3 Result Diagram: 12/02/1662012/02/16620 Objective Remarks GENERAL: CARDIOVASCULAR: Regular rate and rhythm 4/6 systolic heart murmur heard in all areas. RESPIRATORY: Breath sounds equal bilaterally. No accessory muscle use. GASTROINTESTINAL: Abdomen soft, non-tender, nondistended. MUSCULOSKELETAL: No cyanosis, or edema. BACK: Nontender without obvious deformity. No CVA tenderness. Medications and IVs Current Medications Albuterol/ Ipratropium (Duoneb Neb) 1 ampule ONCE ONCE INH Last administered on 11/30/16 15:32; Start 11/30/16 at 15:15; Stop 11/30/16 at 15:16; Status DC Albuterol/ Ipratropium (Duoneb Neb) 1 ampule Q2HR NEB PRN NEB shortness of breath/wheezing Last administered on 12/04/16 13:23; Start 11/30/16 at 22:00 Furosemide (Lasix) 40 mg DAILY PO Last administered on 12/05/16 09:07; Start 12/01/16 at 09:00 Non-Formulary Medication 1 gm 1 gm BID PO CM; Start 11/30/16 at 22:00; Status UNV Pharmacy Profile Note (Coumadin Consult Pharmacy) 0 ml @ 0 mls/hr UNSCH OTHER ; Start 11/30/16 at 22:00 Dextrose (D50w (Vial) Inj) 25 ml UNSCH PRN IV PUSH HYPOGLYCEMIA-SEE COMMENTS; Start 11/30/16 at 22:15 Glucagon (Glucagon Inj) 1 mg UNSCH PRN OTHER HYPOGLYCEMIA-SEE COMMENTS; Start 11/30/16 at 22:15 Insulin Aspart (NovoLOG SUPPLEMENTAL SCALE) 1 ACHS SLIDING SCALE SQ Last administered on 12/05/16 12:09; Start 12/01/16 at 07:00 Patient Medication Teaching (Coumadin Booklet) 1 ONCE ONCE XX Last administered on 12/01/16 00:54; Start 11/30/16 at 22:15; Stop 11/30/16 at 22:16; Status DC Patient Own Medication PT OWN MED: COLESTI... BID PO ; Start 12/01/16 at 09:00; Status Hold Diatrizoate Meglum/ Diatrizoate Sod 18 ml 18 ml ONCE ONCE PO Last administered on 12/01/16 00:54; Start 12/01/16 at 01:00; Stop 12/01/16 at 01:01; Status DC Levofloxacin/ Dextrose (Levaquin 750 Mg Premix Inj) 150 ml @ 100 mls/hr Q48H IV Last administered on 12/01/16 05:21; Start 12/01/16 at 05:00; Stop 12/02/16 at 14:06; Status DC Warfarin Sodium (Coumadin) 2.5 mg DAILY@16 PO Last administered on 12/04/16 15 :56; Start 12/01/16 at 16:00 Levofloxacin (Levaquin) 750 mg Q48H PO ; Start 12/03/16 at 05:00; Stop 12/03/16 at 05:00; Status DC Iohexol (Omnipaque 350 Inj) 75 ml STK-MED ONCE IV Last administered on 22:50; Start 12/02/16 at 22:50; Stop 12/02/16 at 22:51; Status DC Aspirin (Ecotrin Ec) 81 mg DAILY PO Last administered on 12/05/16 09:07; Start 12/03/16 at 14:00 A/P Problem List: (1) Weakness ICD Code: R53.1 Status: Acute (2) Dizziness ICD Code: R42 Status: Acute (3) Lightheadedness ICD Code: R42 Status: Acute (4) Atrial fibrillation ICD Code: I48.91 Status: Chronic (5) COPD (chronic obstructive pulmonary disease) ICD Code: J44.9 Status: Chronic (6) CHF (congestive heart failure) ICD Code: I50.9 Status: Acute (7) Transaminitis ICD Code: R74.0 Status: Acute (8) Renal insufficiency ICD Code: N28.9 Status: Acute (9) Type 2 diabetes mellitus ICD Code: E11.9 Status: Chronic (10) Anemia ICD Code: D64.9 Status: Chronic Assessment and Plan Mr. 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 Weakness with recent fall -seemed to resolved. maybe due to dehydration. -Head CT was negative - physical therapy recommend going to SNF. Dizziness/lightheadedness - Echocardiogram showed EF of 60-65% and mod to severe aortic stenosis. - us shows high grade stenosis. CTA of right carotids showed 80% stenosis carotid stenosis -CTA showed 80%. -on ASA and LDL 69 so at goal. -vascular surgeon saw patient and will talk to family about options. -d/w patient and his ex who is his health surrogate and they both agree to conservative medical management and does not want surgery. mod to severe aortic stenosis -asymptomatic. -can f/u with his wildlife refuge specialist as outpatient. Loculated pleural effusion - Chest CT shows extensive pleural diaphragmatic calcifications and pleural thickening in both hemothoraces characteristic prior asbestos exposure; loculated pleural effusion and left upper lobe. -d/c levoquin -Pulm ff and stated this is chronic. he was cleared by pulm. Atrial fibrillation with supratherapeutic INR 11/28/16 txed with Vitamin K - Current PT is 22.8, INR 2.0, and aPTT 33.8. - Consult pharmacy for assistance with Coumadin dosing and therapeutic monitoring - on 2.5mg po qpm COPD - ABG shows retained CO2 - PCO2 elevated at 74 - compensated, chronic - Duo nebulizers every 2 hours as needed for shortness of breath/wheezing - Supplemental oxygen titrated to maintain oxygen saturation 88-90% do NOT increase oxygen without informing doctor- pt is chronic, compensated, co2 retainer- do not increase fio2 CHF and atypical chest tightness prior to fall -denied any CP with me but he is a poor historian. asymptomatic now. continue to monitor. - Chest x-ray with no significant change to slightly improved personally reviewed image - BNP elevated at 706 (was 708 on 11/28/16) - Serial Troponin I stable 0.18, 0.17, 0.15 - Monitor I & Os - continuous cardiac telemetry to monitor for arrhythmia Transaminitis - likely r/t cirrhosis - AST 176, ALT 138, alkaline phosphatase 125 - no prior labs available for comparison -stable. Ascites -asymptomatic. - CT pelvis and abdomen shows ascites in the upper abdomen with CT findings characteristic of some degree of cirrhosis and ascites tracking into the right inguinal hernia -continue to monitor. Acute renal insufficiency -RESOLVED. - BUN elevated at 41, creatinine 1.29, estimated GFR low at 53 - improved - Avoid nephrotoxins Type 2 diabetes mellitus with hyperglycemia - Blood glucose 259 on admission - conitnue to hold metformin for now in case contrast studies are needed - Accu-Cheks before meals and at bedtime with low-dose NovoLog sliding scale coverage - Bedtime snack - Treatment of hypoglycemia protocol ordered - Monitor trends in blood glucose levels and adjust treatments as indicated Anemia - stable. -no signs of active bleeding. DVT prophylaxis - on Coumadin Discharge Planning patient stable for discharge to SNF. Problem Qualifiers (1) CHF (congestive heart failure): Qualified Code: I50.9 - Chronic congestive heart failure, unspecified congestive heart failure type (2) Type 2 diabetes mellitus: (3) Anemia: Qualified Code: D64.9 - Anemia, unspecified type Michelle Ding MD Dec 05, 2016:28
[2016-12-05] MEDS: WARFARIN SOD 2.5 MG TAB PO SCH (17:10)
[2016-12-06] VITALS (8 sets, daily range): BP systolic 110–142; BP diastolic 55–65; PULSE 53–69; RESP 16–20; TEMP 97.4–99; O2SAT 90–96
[2016-12-06] MEDS: INSULIN ASPART SUPPLEMENTAL SCALE SQ SCH ×3 (06:10→17:53)
[2016-12-06 08:49] LABS: INTERNATIONAL NORMALIZED RATIO 1.8 RATIO; PROTHROMBIN TIME - PATIENT 20.8 SEC (9.8-11.6)
[2016-12-06] MEDS: FUROSEMIDE 40 MG TAB PO SCH (09:04)
[2016-12-06] MEDS: ASPIRIN EC 81 MG TABEC PO SCH (09:04)
[2016-12-06] MEDS ORDERED: WARFARIN SOD 1 MG TAB PO SCH (16:00)
--- NOTE | 2016-12-06 16:55 | HHI.PR ---
Subjective Remarks f/u for carotid stenosis patient asking to go to rehab he has no complaints. Denied any SOB. his , daughter and friend at bedside. they stated they went to the rehab and said bed is available. Objective Vitals Vital Signs Date Time Temp Pulse Resp B/P Pulse Ox O2 Delivery O2 Flow Rate FiO2 12/06/16 12:00 99.0 57 20 119/58 92 12/06/16 09:50 Nasal Cannula 3.00 12/06/16 08:00 97.6 57 18 135/60 96 12/06/16 04:00 97.8 69 16 142/65 93 12/06/16 03:13 53 12/06/16 00:00 97.4 61 18 136/64 93 12/05/16 23:00 Nasal Cannula 3.00 12/05/16 20:00 97.7 60 16 140/66 92 12/05/16 18:02 92 Nasal Cannula 2.00 I/O 12/05/16 12/05/16 12/05/16 12/06/16 12/06/16 12/06/16 07:00 15:00 23:00 07:00 15:00 23:00 Intake Total 480 ml 240 ml 120 ml Output Total 600 ml 200 ml 300 ml Balance -120 ml 40 ml -180 ml Intake Oral 480 ml 240 ml 120 ml Output Urine Total 600 ml 200 ml 300 ml # Bowel Movements 0 0 0 Result Diagram: 12/02/1662012/02/16620 Objective Remarks GENERAL: CARDIOVASCULAR: Regular rate and rhythm 4/6 systolic heart murmur heard in all areas. RESPIRATORY: Breath sounds equal bilaterally. No accessory muscle use. GASTROINTESTINAL: Abdomen soft, non-tender, nondistended. MUSCULOSKELETAL: No cyanosis, or edema. BACK: Nontender without obvious deformity. No CVA tenderness. Medications and IVs Current Medications Albuterol/ Ipratropium (Duoneb Neb) 1 ampule ONCE ONCE INH Last administered on 11/30/16 15:32; Start 11/30/16 at 15:15; Stop 11/30/16 at 15:16; Status DC Albuterol/ Ipratropium (Duoneb Neb) 1 ampule Q2HR NEB PRN NEB shortness of breath/wheezing Last administered on 12/04/16 13:23; Start 11/30/16 at 22:00 Furosemide (Lasix) 40 mg DAILY PO Last administered on 12/06/16 09:04; Start 12/01/16 at 09:00 Non-Formulary Medication 1 gm 1 gm BID PO CM; Start 11/30/16 at 22:00; Status UNV Pharmacy Profile Note (Coumadin Consult Pharmacy) 0 ml @ 0 mls/hr UNSCH OTHER ; Start 11/30/16 at 22:00 Dextrose (D50w (Vial) Inj) 25 ml UNSCH PRN IV PUSH HYPOGLYCEMIA-SEE COMMENTS; Start 11/30/16 at 22:15 Glucagon (Glucagon Inj) 1 mg UNSCH PRN OTHER HYPOGLYCEMIA-SEE COMMENTS; Start 11/30/16 at 22:15 Insulin Aspart (NovoLOG SUPPLEMENTAL SCALE) 1 ACHS SLIDING SCALE SQ Last administered on 12/06/16 11:49; Start 12/01/16 at 07:00 Patient Medication Teaching (Coumadin Booklet) 1 ONCE ONCE XX Last administered on 12/01/16 00:54; Start 11/30/16 at 22:15; Stop 11/30/16 at 22:16; Status DC Patient Own Medication PT OWN MED: COLESTI... BID PO ; Start 12/01/16 at 09:00; Status Hold Diatrizoate Meglum/ Diatrizoate Sod 18 ml 18 ml ONCE ONCE PO Last administered on 12/01/16 00:54; Start 12/01/16 at 01:00; Stop 12/01/16 at 01:01; Status DC Levofloxacin/ Dextrose (Levaquin 750 Mg Premix Inj) 150 ml @ 100 mls/hr Q48H IV Last administered on 12/01/16 05:21; Start 12/01/16 at 05:00; Stop 12/02/16 at 14:06; Status DC Warfarin Sodium (Coumadin) 2.5 mg DAILY@16 PO Last administered on 12/05/16 17 :10; Start 12/01/16 at 16:00 Levofloxacin (Levaquin) 750 mg Q48H PO ; Start 12/03/16 at 05:00; Stop 12/03/16 at 05:00; Status DC Iohexol (Omnipaque 350 Inj) 75 ml STK-MED ONCE IV Last administered on 22:50; Start 12/02/16 at 22:50; Stop 12/02/16 at 22:51; Status DC Aspirin (Ecotrin Ec) 81 mg DAILY PO Last administered on 12/06/16t 09:04; Start 12/03/16 at 14:00 Warfarin Sodium (Coumadin) 1 mg ONCE PO ; Start 12/06/16 at 16:00; Stop at 21:00 A/P Problem List: (1) Weakness ICD Code: R53.1 Status: Acute (2) Dizziness ICD Code: R42 Status: Acute (3) Lightheadedness ICD Code: R42 Status: Acute (4) Atrial fibrillation ICD Code: I48.91 Status: Chronic (5) COPD (chronic obstructive pulmonary disease) ICD Code: J44.9 Status: Chronic (6) CHF (congestive heart failure) ICD Code: I50.9 Status: Acute (7) Transaminitis ICD Code: R74.0 Status: Acute (8) Renal insufficiency ICD Code: N28.9 Status: Acute (9) Type 2 diabetes mellitus ICD Code: E11.9 Status: Chronic (10) Anemia ICD Code: D64.9 Status: Chronic Assessment and Plan Mr. 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 Weakness with recent fall -seemed to resolved. maybe due to dehydration. -Head CT was negative - physical therapy recommend going to SNF. Dizziness/lightheadedness - Echocardiogram showed EF of 60-65% and mod to severe aortic stenosis. - us shows high grade stenosis. CTA of right carotids showed 80% stenosis carotid stenosis -CTA showed 80%. -on ASA and LDL 69 so at goal. -vascular surgeon saw patient and will talk to family about options. -d/w patient and his ex who is his health surrogate and they both agree to conservative medical management and does not want surgery. mod to severe aortic stenosis -asymptomatic. 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 Loculated pleural effusion - Chest CT shows extensive pleural diaphragmatic calcifications and pleural thickening in both hemothoraces characteristic prior asbestos exposure; loculated pleural effusion and left upper lobe. -d/c levoquin -Pulm ff and stated this is chronic. he was cleared by pulm. Atrial fibrillation with supratherapeutic INR 11/28/16 txed with Vitamin K - Current PT is 22.8, INR 2.0, and aPTT 33.8. - Consult pharmacy for assistance with Coumadin dosing and therapeutic monitoring - on 2.5mg po qpm COPD - ABG shows retained CO2 - PCO2 elevated at 74 - compensated, chronic - Duo nebulizers every 2 hours as needed for shortness of breath/wheezing - Supplemental oxygen titrated to maintain oxygen saturation 88-90% do NOT increase oxygen without informing doctor- pt is chronic, compensated, co2 retainer- do not increase fio2 CHF and atypical chest tightness prior to fall -denied any CP with me but he is a poor historian. asymptomatic now. continue to monitor. - Chest x-ray with no significant change to slightly improved personally reviewed image - BNP elevated at 706 (was 708 on 11/28/16) - Serial Troponin I stable 0.18, 0.17, 0.15 - Monitor I & Os - continuous cardiac telemetry to monitor for arrhythmia Transaminitis - likely r/t cirrhosis - AST 176, ALT 138, alkaline phosphatase 125 - no prior labs available for comparison -stable. Ascites -asymptomatic. - CT pelvis and abdomen shows ascites in the upper abdomen with CT findings characteristic of some degree of cirrhosis and ascites tracking into the right inguinal hernia -continue to monitor. Acute renal insufficiency -RESOLVED. - BUN elevated at 41, creatinine 1.29, estimated GFR low at 53 - improved - Avoid nephrotoxins Type 2 diabetes mellitus with hyperglycemia - Blood glucose 259 on admission - conitnue to hold metformin for now in case contrast studies are needed - Accu-Cheks before meals and at bedtime with low-dose NovoLog sliding scale coverage - Bedtime snack - Treatment of hypoglycemia protocol ordered - Monitor trends in blood glucose levels and adjust treatments as indicated Anemia - stable. -no signs of active bleeding. DVT prophylaxis - on Coumadin Discharge Planning patient stable for discharge to SNF waiting for bed. Problem Qualifiers (1) CHF (congestive heart failure): Qualified Code: I50.9 - Chronic congestive heart failure, unspecified congestive heart failure type (2) Type 2 diabetes mellitus: (3) Anemia: Qualified Code: D64.9 - Anemia, unspecified type Michelle Ding MD Dec 06, 2016 16:55
[2016-12-06] MEDS: WARFARIN SOD 2.5 MG TAB PO SCH (17:06)
--- NOTE | 2016-12-06 20:53 | HHI.DS ---
Discharge Summary Admission Date Dec 03, 2016 at 13:38 Discharge Date: Dec 06, 2016 Admitting Diagnosis weakness. Renal insufficiency. COPD. CHF. (1) Dehydration ICD Code: E86.0 Diagnosis: Principal (2) Weakness ICD Code: R53.1 Diagnosis: Principal (3) Atrial fibrillation ICD Code: I48.91 Diagnosis: Secondary (4) COPD (chronic obstructive pulmonary disease) ICD Code: J44.9 Diagnosis: Secondary (5) CHF (congestive heart failure) ICD Code: I50.9 Diagnosis: Secondary (6) Transaminitis ICD Code: R74.0 Diagnosis: Secondary (7) Renal insufficiency ICD Code: N28.9 Diagnosis: Secondary (8) Chronic respiratory failure with hypoxia ICD Code: J96.11 Diagnosis: Secondary (9) Carotid stenosis ICD Code: I65.29 Diagnosis: Secondary Procedures see hospital course. Brief History - From Admission Mr. Israel is a forgetful 86-year-old male with a past medical history of coronary artery disease that is supposed coronary artery bypass graft 4 vessels , atrial fibrillation on Coumadin, hyperlipidemia, hypertension, COPD-oxygen dependent (3 L nasal cannula), and type 2 diabetes mellitus who presented to the emergency room 11/30/2016 for recent fall, weakness, dizziness, and lightheadedness. The patient presented to the emergency room 11/28/2016 and an INR done at that time was 15.9 with PTT of greater than 180.0 (treated with Vitamin K 10 mg). Currently, PT is 22.8, INR 2.0, and aPTT 33.8. The patient is seen in his hospital room. He is forgetful during the interview and at times loses track of the conversation. He states he came to the emergency room because he has had weakness in his legs with inability to walk, sore ankles, dizziness, and fall 1 at home. He reports his symptoms present for one month. He said he had a severe abdominal pain and tightness across his chest that lasted only a second prior to falling. He says was unable to stand up afterwards and was crawling around the house before family member found him. He reports becoming very short of breath because he lost his nasal cannula. He states he is not short of breath when he is wearing his oxygen. He denies any fever. He denies liver or kidney problems, cancer, thyroid dysfunction, seizures, or problems with blood clots such as DVT, CVA, or PE. . CBC/BMP: 12/02/16 0621 12/02/16 0621 Significant Findings Laboratory Tests Test 12/04/16 12/05/16 12/06/16 07:23 06:36 08:00 Prothrombin Time 18.7 SEC 21.6 SEC 20.8 SEC (9.8-11.6) (9.8-11.6) (9.8-11.6) Imaging Last Impressions Neck CTA 12/02/16 0000 Signed Impressions: Service Date/Time: Friday, December 02, 2016 22:41 - CONCLUSION: Short segment high grade 80%% stenosis of the proximal right internal carotid artery due to calcified plaque. Timoteo Major MD Abdomen/Pelvis CT 12/01/16 0023 Signed Impressions: Service Date/Time: November 02:41 - CONCLUSION: 1. Pleural and diaphragmatic base calcifications with some regional pleural thickening characteristic of asbestos exposure. 2. Probable rounded atelectasis in both lung bases with scattered ground glass density in both lower lobes characteristic of an inflammatory process. 3. Ascites in the upper abdomen with CT findings characteristic of some degree of cirrhosis. Ascites tracks into the right inguinal hernia. . Edmund Fofana MD Chest CT 12/01/16 0000 Signed Impressions: Service Date/Time: November 02:41 - CONCLUSION: 1. Extensive pleural and diaphragmatic calcifications with pleural thickening in both hemithoraces characteristic of prior asbestos exposure. 2. Loculated pleural effusion in the left upper lobe. Significant ascites in the upper abdomen. 3. Consolidative areas medially in both lung bases, right greater than left. The appearance is suggestive of rounded atelectasis. 4. Ground glass density scattered throughout both lungs characteristic of an inflammatory process. There is a nodular ground glass density in the right upper lobe measuring 1.2 cm in diameter. Recommend followup noncontrasted CT scan of the chest in 3 months to ensure stability. 5. Ascites Edmund Fofana MD Carotid Artery Ultrasound 12/01/16 0000 Signed Impressions: Service Date/Time: November 08:45 - CONCLUSION: 1. 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 This would be better evaluated with CTA carotids. Darren Bennett MD Chest X-Ray 11/30/16 1509 Signed Impressions: Service Date/Time: Wednesday, November 30, 2016 15:33 - CONCLUSION: No significant change to slightly improved. Please see above. Kenroy Tovar MD Head CT 11/30/16 0000 Signed Impressions: Service Date/Time: Wednesday, November 30, 2016 13:40 - CONCLUSION: Negative noncontrast head CT. Kenroy Tovar MD PE at Discharge GENERAL: CARDIOVASCULAR: Regular rate and rhythm 4/6 systolic heart murmur heard in all areas. RESPIRATORY: Breath sounds equal bilaterally. No accessory muscle use. GASTROINTESTINAL: Abdomen soft, non-tender, nondistended. MUSCULOSKELETAL: No cyanosis, or edema. BACK: Nontender without obvious deformity. No CVA tenderness. Hospital Course Mr. 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 Weakness with recent fall -patient given fluids and resolved with fluids. -maybe due to dehydration. -Head CT was negative - physical therapy evaluated patient recommend going to SNF. Dizziness/lightheadedness - Echocardiogram showed EF of 60-65% and mod to severe aortic stenosis. - us shows high grade stenosis. CTA of right carotids showed 80% stenosis -resolved with hydration. carotid stenosis -CTA showed 80%. -was put on ASA and LDL 69 so at goal. -vascular surgeon saw patient and will talk to family about options. -d/w patient and his ex who is his health surrogate and they both agree to conservative medical management and does not want surgery. mod to severe aortic stenosis -asymptomatic. 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 Loculated pleural effusion - Chest CT shows extensive pleural diaphragmatic calcifications and pleural thickening in both hemothoraces characteristic prior asbestos exposure; loculated pleural effusion and left upper lobe. -he was put on levaquin but that was d/c due to no active disease. -Pulm ff and stated this is chronic. he was cleared by pulm. Atrial fibrillation with supratherapeutic INR 11/28/16 txed with Vitamin K - Current PT is 22.8, INR 2.0, and aPTT 33.8. - Consult pharmacy for assistance with Coumadin dosing and therapeutic monitoring - on 2.5mg po qpm COPD - ABG shows retained CO2 - PCO2 elevated at 74 - compensated, chronic - Duo nebulizers every 2 hours as needed for shortness of breath/wheezing - Supplemental oxygen titrated to maintain oxygen saturation 88-90% do NOT increase oxygen without informing doctor- pt is chronic, compensated, co2 retainer- do not increase fio2 CHF and atypical chest tightness prior to fall -denied any CP with me but he is a poor historian. asymptomatic. - Chest x-ray with no significant change to slightly improved. - BNP elevated at 706 (was 708 on 11/28/16) - Serial Troponin I stable 0.18, 0.17, 0.15 - continuous cardiac telemetry to monitor for arrhythmia which during hospital course nothing impressive. Transaminitis - likely r/t cirrhosis - AST 176, ALT 138, alkaline phosphatase 125 - no prior labs available for comparison -stable. Ascites -asymptomatic. - CT pelvis and abdomen shows ascites in the upper abdomen with CT findings characteristic of some degree of cirrhosis and ascites tracking into the right inguinal hernia -continue to monitor. Acute renal insufficiency -RESOLVED with IVFs. - BUN elevated at 41, creatinine 1.29, estimated GFR low at 53 - improved - Avoid nephrotoxins Type 2 diabetes mellitus with hyperglycemia - Blood glucose 259 on admission - metformin held due to procedure then restarted on discharge. - Accu-Cheks before meals and at bedtime with low-dose NovoLog sliding scale coverage - Bedtime snack - Treatment of hypoglycemia protocol ordered - Monitor trends in blood glucose levels and adjust treatments as indicated Anemia - stable. -no signs of active bleeding. Pt Condition on Discharge: Good Discharge Disposition: Discharge to SNF Discharge Time: > 30 minutes Discharge Instructions DIET: Follow Instructions for: Heart Healthy Diet, Coumadin (Warfarin) Diet Activities you can perform: Regular-No Restrictions Follow up Referrals: PCP Follow-up - 1 Week Pulmonology - 2 Weeks New Medications: Aspirin DR (Aspirin EC) 81 Mg Tabdr 81 MG PO DAILY carotid stenosis #30 Ref 0 TAB Warfarin (Coumadin) 2.5 Mg Tab 2.5 MG PO DAILY@16 recheck INR closely until patient is therapeutic btwn 2-3. atrial fibrillation prophylaxi #15 Ref 0 TAB Continued Medications: Calcium Carbonate-Cholecalciferol (Calcium + D3) 600-200 Mg-Unit Tab 1 TAB PO DAILY TAB Colestipol (Colestipol) 1 Gm Tab 1 GM PO BID Cholesterol Management #120 Ref 0 TAB Cyanocobalamin (Vitamin B-12) 1,000 Mcg Tab 1000 MCG PO DAILY Nutritional Supplement #1 Ref 0 BOTTLE Furosemide (Furosemide) 40 Mg Tab 40 MG PO DAILY #30 Ref 0 TAB Glucosamine (Glucosamine) 500 Mg Cap 500 MG PO BID Herbal Supplements Ref 0 CAP Metformin (Metformin) 1,000 Mg Tab 1000 MG PO BIDPC With meals Blood Sugar Management #60 Ref 0 TAB Discontinued Medications: Warfarin (Warfarin) 5 Mg Tab 2.5 MG PO MOFR Take 1/2 tablet (2.5mg) on Monday and Monday Blood Clot Prevention #30 Ref 0 TAB Warfarin (Warfarin) 5 Mg Tab 5 MG PO SUTUWETHSA Take 1 tablet (5mg) on Monday,Monday,Monday, and Monday Blood Clot Prevention #30 Ref 0 TAB Michelle Ding MD Dec 06, 2016 20:53
== END 2016-12-06 18:00 | DRG 68 ==
LOC: NEPA 12:07 → NEDA 17:14 → N04B 22:50 → OBSVTOIN 12-03 13:38
PROVIDERS: ADMIT Family Medicine; ATTEND Family Medicine
DX: I65.21 Occlusion and stenosis of right carotid artery (principal); E87.4 Mixed disorder of acid-base balance; R18.8 Other ascites; J96.11 Chronic respiratory failure with hypoxia; E11.65 Type 2 diabetes mellitus with hyperglycemia; I50.32 Chronic diastolic (congestive) heart failure; I48.2 Chronic atrial fibrillation; F03.90 Unspecified dementia, unspecified severity, without behavioral disturbance, psychotic disturbance, mood disturbance, and anxiety; I11.0 Hypertensive heart disease with heart failure; N28.9 Disorder of kidney and ureter, unspecified; E86.0 Dehydration; I10 Essential (primary) hypertension; J44.9 Chronic obstructive pulmonary disease, unspecified; K74.60 Unspecified cirrhosis of liver; Z99.81 Dependence on supplemental oxygen; K40.90 Unilateral inguinal hernia, without obstruction or gangrene, not specified as recurrent; I35.0 Nonrheumatic aortic (valve) stenosis; I25.10 Atherosclerotic heart disease of native coronary artery without angina pectoris; E78.5 Hyperlipidemia, unspecified; R26.2 Difficulty in walking, not elsewhere classified; D64.9 Anemia, unspecified; H91.90 Unspecified hearing loss, unspecified ear; W19.XXXA Unspecified fall, initial encounter; Z72.0 Tobacco use; Z77.090 Contact with and (suspected) exposure to asbestos; Z79.01 Long term (current) use of anticoagulants; Z86.73 Personal history of transient ischemic attack (TIA), and cerebral infarction without residual deficits; Z95.1 Presence of aortocoronary bypass graft
CPT/HCPCS: 36600; 70450; 70498; 71010; 71250; 74176; 80053; 80061; 82550; 82805; 82948; 83690; 83880; 84484; 85025; 85027; 85610; 85730; 93005; 93306; 93880; 94640; 94664; G0378; G8987-GP; G8988-GP; J1815; J1956; Q9963; Q9967